=== PATIENT | female | born 1970 | race Caucasian/White ===

== ENCOUNTER → 2017-08-15 10:47 | Outpatient (CLI) | payer OTHER, SELFPAY ==
[2017-08-15 11:48] LABS: Absolute Lymphocyte Count 2.48 X10^3/ul (0.83-4.51); Absolute Neutrophil Count 6.6 X10^3/uL (2.0-7.7); Basophil# 0.01 X10^3/uL; Basophil% 0.1 % (0-1); Eosinophil# 0.08 X10^3/uL; Eosinophils% 0.8 % (0-5); Hemoglobin 13.7 g/dl (12.0-15.0); Lymphocyte # 2.48 X10^3/ul (4.0); Lymphocyte % 25.7 % (19-41); Mean Corp Hgb Conc 33.4 g/gl (32-36); Mean Corpuscular Hgb 28.8 pg (27.0-32.0); Mean Corpuscular Volume 86.1 fL (81-99); Mean Platelet Vol. 9.4 fl (6.2-12.0); Monocyte# 0.46 X10^3/uL; Monocyte% 4.8 % (0-10); Neutrophil % 68.5 % (47-70); Platelet Count 338 K/mm3 (150-450); RBC Distribution Width CV 13.1 % (11.6-14.6); RBC Distribution Width SD 41.6 fl (35.1-43.9); Red Blood Count 4.76 M/mm3 (4.2-5.4); White Blood Count 9.6 K/mm3 (4.4-11.0)
[2017-08-15 11:50] LABS: POSITIVE COUNT NO; POSITIVE DIFFERENTIAL NO; POSITIVE MORPHOLOGY NO
[2017-08-15 12:15] LABS: AST(SGOT) 10 U/L (15-37); Alanine Aminotransfer ALT/SGPT 16 U/L (13-56); Albumin, Serum 3.1 g/dL (3.2-5.0); Alkaline Phosphatase 58 U/L (45-117); Anion Gap 8 (5-15); BUN 12 mg/dL (7-18); BUN/Creat Ratio 17.3 RATIO (10-20); Calcium,Total 8.4 mg/dL (8.5-10.1); Chloride 107 mmol/L (98-107); Cholesterol 165 mg/dL (200); Creatinine, Serum 0.69 mg/dL (0.55-1.02); EST Glomerular Filtration Rate 96 mL/min (>60); Est Glom Filt Rate - Afr Amer 116 mL/min (>60); Globulin 3.2 g/dL (2.2-4.2); Glucose 85 mg/dL (74-106); High Density Lipoprotein 51 mg/dL; Potassium 3.4 mmol/L (3.5-5.1); Protein, Total 6.3 g/dL (6.4-8.2); Sodium Level 142 mmol/L (136-145); T4 Free Direct 0.99 ng/dL (0.76-1.46); Thyroid Stim Hormone (TSH) 1.91 uIU/mL (0.358-3.74); Triglycerides 71 mg/dL; Very Low Density Lipoprotein 14 mg/dL (5-40)
== END ==
PROVIDERS: Family Provider Family Medicine; PCP Family Medicine; Visit Provider Family Medicine
DX: E78.5 Hyperlipidemia, unspecified (principal); E11.9 Type 2 diabetes mellitus without complications; I10 Essential (primary) hypertension
CPT/HCPCS: 36415; 80053; 80061; 84439; 84443; 85025

== ENCOUNTER → 2017-09-09 12:52 | Outpatient (CLI) | payer OTHER, SELFPAY ==
--- NOTE | 2017-09-09 12:55 | BI_ITS ---
MAMMOGRAPHY - BILATERAL SCREENING REASON FOR EXAM: Female, 47 years old. Routine annual screening examination. PERTINENT HISTORY: Aunt with breast cancer. TECHNIQUE: Digital bilateral breast jorden (3D mammographic acquisition) in the CC and MLO projections. 2-D mediolateral oblique (MLO) and craniocaudad (CC) views of both breasts were obtained. CAD: Full Field Digital Mammography with Computer Added Detection was performed. COMPARISON: Comparison is made with prior study dated September 07, 2016. FINDINGS: Breast Composition: The breasts are almost entirely fatty. There are no dominant masses or suspicious calcifications. Stable benign-appearing small bilateral axillary lymph nodes. No other significant abnormalities are identified. There has been no significant change since the prior study. BI/SCREENING MAMM (CAD), BILAT IMPRESSION: Stable bilateral screening mammogram. Yearly follow-up mammogram recommended. (A) ASSESSMENT CATEGORY: BIRADS Category 2: Benign. A letter regarding these results will be sent to the patient by the facility within 30 days. Approximately 10% of breast cancers are not detected by mammography. A normal mammogram should not delay biopsy of a clinically suspicious abnormality. [id number] Electronically Signed: Angel Day MD at 9:29 EDT Tel [phone], Service support ,
== END ==
PROVIDERS: Family Provider Family Medicine; PCP Family Medicine; Visit Provider Obstetrics & Gynecology
DX: Z12.31 Encounter for screening mammogram for malignant neoplasm of breast (principal)
CPT/HCPCS: 77063; 77067

== ENCOUNTER → 2017-12-11 09:54 | Outpatient (CLI) | payer OTHER, SELFPAY ==
[2017-12-11 10:39] LABS: Microalbumin,Random Urine 26.8 mg/L (NO RANGE EST.); Microalbumin:Creatinine Ratio 11.5 mg/g CRE (<30 mg/g CRE)
== END ==
PROVIDERS: Family Provider Internal Medicine; PCP Internal Medicine; Visit Provider Internal Medicine
DX: E11.9 Type 2 diabetes mellitus without complications (principal)
CPT/HCPCS: 36415; 82043; 82570; 83036

== ENCOUNTER 2018-01-15 15:00 | Outpatient (RCR) | payer OTHER, SELFPAY ==
--- NOTE | 2017-12-23 13:54 | HP.PTEVAL ---
Patient's Visit Information MERCED OROZCO is a 47 year old F referred to Physical Therapy by Adelina Zelaya MD with a diagnosis of Bilateral Shoulder Pain. Date of Evaluation: 12/23/17 Physical Therapist: Desiree Casas - Visit Plan Frequency: 2-3x /Week Duration: 4 Months Plan: Focus on scap s/s and postural correction- modalities as needed - Subjective Subjective: Bilateral shoulder pain about a year- insidious onset- was exercising using the bands and they were sore and just got worse. Left use to be the worst but now its the right. Feels they have gotten worse. The pain is in the anterior shoulder and radites to the elbow on the right. Right hand dominate. Describes the pain as searing pains- feels like someone is pulling her apart. Radiating pain is sharp and sometimes burning. Was having N/T in the hands but its gone now- Dr. Cruz thinks she has radial tunnel- 2 months since symptoms. Worst: 10/10 Agg: reaching behind her, over head, hook bra. Best: 0/10 Eases: none. MD had her take a predniose dose pack which did not help. No x-rays or MRI of the shoulder. Sleep: disturbed- hard to get comfortable and will wake her up- side sleeper. No neck pain currently but has had neck pain previously-does not see a chiro or massage therapist. No RUSH, blurred vision or dizziness. PMHx: type 2 DM, blood sugar is not under control (250 is normal) Meds: lisinopril, torvastatin, glomeperide, baslogar injection, effexor. 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 - Objective Posture: FH, RS- does correc with VC's but does not maintain. Gait: good arm swing-WFL. Palpation: tender along AC joint, medial border of the scapula. ROM: Cervical: WNL, Shoulder: WNL with pain at end ranges of Flexion, abduction and IR. Right IR: to belt line. Elbow/Wrist/hand: WNL. Strength: scap: fair minus, shoulder: 4+/5 throughout with pain IR/ER. Elbow/Wrist/Psychiatric Specialist: WNL. Special Test: Impingment: positive ([facility]), empty can: negative. Sensation: WNL - Goals Goal 1:: Patient will be I with HEP and progression Goal Time Frame: 4-6 Weeks Goal 2:: Patient will maintain proper posture t/o tx session to demo increased scap s/s. Goal Time Frame: 4-6 Weeks Goal 3:: Patient will demo full AROM with 0/10 pain Goal Time Frame: 4-6 Weeks - Rehabilitation Potential Physical Therapy Diagnosis: Patient presents with hypomobility- she has decreased ROM, strength and muscular endurance leading to poor posture and increased pain with ADL's. Rehabilitation Potential: Good - Anticipated Interventions Patient/Client Instruction: Educate patient on: Benefits of Fitness Program Therapeutic Exercise to Include: Strength training, Coordination, Body mechanics, Postural training, Active ROM, Scapular Strength/Stabilization For the Purpose of:: To improve muscle performance and motor function TENS: Yes Cryotherapy (ice pack, ice massage): Yes Thermo therapy (hot pack): Yes Ultrasound (thermal/non thermal): Yes For the Purpose of:: To decrease pain Thank you for the opportunity to evaluate your patient. For Medicare and Medicare HMO plans, please review the plan of care and approve it. It will need to be FAXED BACK to us at [phone] for Medicare purposes. Please let me know if there are questions or concerns regarding this plan of care. Physician Signature: Date:
--- NOTE | 2018-05-28 09:01 | HP.PTDCNRP_ITS ---
HP - Discharge Summary (1) - Patient Information MERCED OROZCO was seen in my office for initial evaluation on 12/23/17. The following Plan of Care was established for this patient: Initial Frequency: 2-3x /Week Initial Duration: 4 Months - Anticipated Interventions Patient/Client Instruction: Educate patient on: Benefits of Fitness Program Therapeutic Exercise to Include: Strength training, Coordination, Body m echanics, Postural training, Active ROM, Scapular Strength/Stabilization For the Purpose of:: To improve muscle performance and motor function TENS: Yes Cryotherapy (ice pack, ice massage): Yes Thermo therapy (hot pack): Yes Ultrasound (thermal/non thermal): Yes For the Purpose of:: To decrease pain This patient was last seen in our office . Pertinent comments regarding their Physical therapy will appear below: Patient reported that shoulder was worse and was to return to MD for further evaluation- appropriate to be d.c at this time. At this point I will be discontinuing this patient from physical therapy. I would be happy to see this patient again in the future if found appropriate by the physician. Thank you! Desiree Casas DPT
== END 2018-01-15 19:00 | disposition home or self-care (01) ==
LOC: PT 15:00
PROVIDERS: Family Provider Internal Medicine; PCP Internal Medicine; Visit Provider Internal Medicine
DX: M25.511 Pain in right shoulder (principal); M25.512 Pain in left shoulder
CPT/HCPCS: 97110; 97161

== ENCOUNTER → 2018-01-17 15:05 | Outpatient (CLI) | payer OTHER, SELFPAY | PROVIDERS: Family Provider Internal Medicine; PCP Internal Medicine; Visit Provider Internal Medicine | DX: G47.10 Hypersomnia, unspecified (principal) | CPT/HCPCS: 95806 ==

== ENCOUNTER → 2018-02-10 11:15 | Outpatient (CLI) | payer OTHER, SELFPAY ==
--- NOTE | 2018-02-10 11:17 | RAD_ITS ---
STUDY: X-RAY - RIGHT SHOULDER REASON FOR EXAM: Female, 47 years old. Bilateral shoulder pain TECHNIQUE: 4 view(s) of the shoulder. COMPARISON: Contralateral shoulder same date. Chest x-ray 05/08/2016. 11/28/2016. FINDINGS: Normal acromioclavicular joint. No fracture. Small foci of calcification overlying the greater tubercle of the humerus at the supraspinatus/infraspinatus insertion consistent with calcific tendinosis. RAD/Shoulder min 2 Views IMPRESSION: Evidence of calcific tendinosis of the rotator cuff. Osseous structures normal. Electronically Signed: Ash Burks, at 17:20 EDT Tel , Service support ,
--- NOTE | 2018-02-10 11:19 | RAD_ITS ---
STUDY: X-RAY - LEFT SHOULDER REASON FOR EXAM: Female, 47 years old. Bilateral shoulder pain TECHNIQUE: 4 view(s) of the shoulder. COMPARISON: Contralateral shoulder same date. FINDINGS: Small foci of calcification overlying the greater tubercle of the humerus at the expected location of the supraspinatus or infraspinatus insertion, consistent with calcific tendinosis. Osseous structures about the shoulder are otherwise normal. Periarticular soft tissues normal. RAD/Shoulder min 2 Views IMPRESSION: Evidence of calcific tendinosis of the rotator cuff, otherwise unremarkable shoulder. Electronically Signed: Ash Burks, at 17:21 EDT Tel , Service support ,
== END ==
LOC: HPRAD 11:16
PROVIDERS: Family Provider Internal Medicine; PCP Internal Medicine; Referring Provider Internal Medicine; Visit Provider Internal Medicine
DX: M25.511 Pain in right shoulder (principal); M25.512 Pain in left shoulder
CPT/HCPCS: 73030

== ENCOUNTER 2018-02-24 05:29 | Emergency (ER) | payer OTHER, SELFPAY ==
[2018-02-24 05:30] VITALS: BP 162/83; PULSE 78; RESP 20; TEMP 36.6; O2SAT 99; BMI 36.1
--- NOTE | 2018-02-24 05:36 | RAD_ITS ---
STUDY: X-RAY - ABDOMEN/PELVIS REASON FOR EXAM: Female, 47 years old. Constipation TECHNIQUE: Two AP supine views of the abdomen and pelvis. COMPARISON: None. FINDINGS: Normal visualized lung bases. There is a moderate amount of colonic fecal material. There is no demonstrated free abdominal air. The visualized liver, spleen and kidneys are grossly normal in size and morphology. Normal soft tissue structures. Normal visualized osseous structures. RAD/Abdomen Single View IMPRESSION: There is a moderate amount of colonic fecal material. Electronically Signed: Daniel Evans MD at 5:58 EDT Tel , Service support ,
--- NOTE | 2018-02-24 06:15 | ED.VISSUMM ---
- ER Visit Summary Date of Service: 02/24/18 Chief Complaint: Constipation History of Present Illness: The patient is a 47 F presenting with constipation. Patient states she has not had a bowel movement in the past 3 days. She has tried Dulcolax at home without relief. She has nausea with no vomiting. She has mild diffuse abdominal cramping. Denies fever. Denies other complaints. Physical Examination: Vitals are stable. Patient is afebrile. Alert no acute distress. HEENT exam is unremarkable. Lungs are clear and equal bilaterally. Heart is regular rate and rhythm. Abdomen is soft nontender nondistended. No guarding or rebound Rectal: no stool impaction Extremities are unremarkable. Skin is warm and dry. Remainder of exam is unremarkable. Emergency Department Course and Treatment: KUB shows moderate amount of stool. Patient was given Zofran po. She declined enema in the emergency department. She was given mag citrate for home. She is advised to follow-up with her primary care physician. Advised return to ED if worsening complaints. Disposition: Discharge home Impression: Constipation This note was generated with [employer] dictation software. It may contain incorrect words, spelling, and punctuation that were not noted in review of the chart prior to signing ED Disposition - Plan for ED Patient: Chief Complaint: Abd Pain Instructions: ED Constipation Referrals: Adelina Zelaya MD [Primary Care Provider] -
[2018-02-24] MEDS: Magnesium Citrate 300 ML PO (06:23)
[2018-02-24] MEDS: Ondansetron ODT 4 MG Tablet PO (06:23)
[2018-02-24 06:25] VITALS: RESP 18
== END 2018-02-24 06:25 | disposition home or self-care (01) ==
PROVIDERS: Emergency Provider Emergency Medicine; Family Provider Internal Medicine; PCP Internal Medicine
DX: K59.00 Constipation, unspecified (principal); E11.9 Type 2 diabetes mellitus without complications; Z79.4 Long term (current) use of insulin; Z79.899 Other long term (current) drug therapy
CPT/HCPCS: 74018; 99283

== ENCOUNTER → 2018-03-26 16:31 | Outpatient (CLI) | payer OTHER, SELFPAY ==
[2018-03-26 14:58] VITALS: BMI 34.2
[2018-03-26 16:36] LABS: Mucous, Urine 0 SEEN /hpf (<or=2+)
[2018-03-26 17:27] LABS: Color, Urine Yellow (Yellow); Glucose, Dipstick 250 mg/dl (Normal); Ketone-Dipstick Negative (Negative); Leukocyte Esterase-Dipstick 500 /ul (Negative); Nitrite-Dipstick Negative (Negative); Occult Blood-Urine 250 /ul (Negative); Protein-Dipstick 15 mg/dl (Negative); Urine Bilirubin Dipstick Negative (Negative); Urine Clarity Cloudy (Clear); Urine Urobilinogen Normal (Normal)
[2018-03-26 17:43] LABS: Bacteria 1+ /hpf (None Seen); Red Blood Cells-Urine 5-10 SEEN /hpf (0-5); Squamous Epithelial Cells - UA 10-25 SEEN /hpf (5-10); White Blood Cells 25-50 SEEN /hpf (0-5)
== END ==
LOC: LABSPEC 16:32
PROVIDERS: Family Provider Internal Medicine; PCP Internal Medicine; Referring Provider Nurse Practitioner Family; Visit Provider Nurse Practitioner Family
DX: R30.0 Dysuria (principal)
CPT/HCPCS: 81001; 87086; 87088

== ENCOUNTER → 2018-05-23 09:30 | Outpatient (CLI) | payer OTHER, SELFPAY ==
[2018-05-23 09:03] VITALS: BMI 34.2
--- NOTE | 2018-05-23 09:37 | RAD_ITS ---
STUDY: X-RAY - CERVICAL SPINE REASON FOR EXAM: Female, 47 years old. History of radiculopathy. TECHNIQUE: 3 view(s) of the cervical spine were obtained. COMPARISON: None FINDINGS: Normal anterior atlantoaxial articulation. Normal odontoid process. There is straightening of the normal cervical lordosis. The vertebral heights are within normal limits. There is mild endplate spondylosis at the level of C5-C6. Normal disc space heights. The soft tissue structures are unremarkable. There is no demonstrated fracture of the cervical spine. RAD/Cerv Spine 2 or 3 Views IMPRESSION: 1. Straightening of the cervical spine which could be due to muscle spasm. 2. Mild degenerative changes. Electronically Signed: Nazario Leal MD at 9:57 EST Tel , Service support ,
--- OUTSIDE RECORDS SUMMARY | 2018-07-27 17:06 | XMS RPT_ITS ---
:1970 Author Organization OHIP Support Name Relationship Address Phone [facility] Unavailable [address] + [place] [address] HUDSPITH, DANIELLE Unavailable [address] + [place] [address] [facility] Unavailable [address] + [place] [address] HUDSPITH, DANIELLE Unavailable [address] + [place] [address] [facility] Unavailable [address] + [place] [address] HUDSPITH, DANIELLE Unavailable [address] + [place] [address] [facility] Unavailable [address] + [place] [address] HUDSPITH, DANIELLE Unavailable [address] + [place] [address] [facility] Unavailable [address] + [place] [address] HUDSPITH, DANIELLE Unavailable [address] + [place] [address] [facility] Unavailable [address] + [place] [address] HUDSPITH, DANIELLE Unavailable [address] + [place] [address] [facility] Un[address] + [place] [address] HUDSPITH, DANIELLE Unavailable [address] + [place] [address] [facility] Un[address] + [place] [address] HUDSPITH, DANIELLE Unavailable [address] + [place] [address] [facility] Unavailable [address] + [place] [address] HUDSPITH, DANIELLE Unavailable [address] + [place] [address] [facility] Un[address] + [place] [address] HUDSPITH, ADNIELLE Unavailable [address] + [place] [address] [facility] Un[address] + [place] [address] HUDSPITH, DANIELLE Unavailable [address] + [place] [address] [facility] Un[address] + [place] [address] HUDSPITH, DANIELLE Unavailable [address] + [place] [address] [facility] Unavailable [address] + [place] [address] HUDSPITH, DANIELLE Unavailable [address] + [place] [address] [facility] Unavailable [address] + [place] [address] HUDSPITH, DANIELLE Unavailable [address] + [place] [address] [facility] Unavailable [address] + [place] [address] HUDSPITH, DANIELLE Unavailable [address] + [place] [address] [facility] Unavailable [address] + [place] [address] HUDSPITH, DANIELLE Unavailable [address] + [place] [address] [facility] Unavailable [address] + [place] [address] HUDSPITH, DANIELLE Unavailable [address] + [place] [address] [facility] Unavailable [address] + [place] [address] HUDSPITH, DANIELLE Unavailable [address] + [place] [address] [facility] Un[address] + [place] [address] HUDSPITH, DANIELLE Unavailable [address] + [place] [address] [facility] Unavailable [address] + [place] [address] [facility] Un[address] + [place] [address] [facility] [address] + [place] [address] [facility] Un[address] + [place] [address] [facility] [address] + [place] [address] ASADSPITH, DANIELLE Unavailable [address] + [place] [address] [facility] Unavailable [address] [address] + [place] [address] HUDSPITH, DANIELLE Unavailable [address] + [place] [address] Care Team Providers Name Role Phone Alek Wilburn Attending Unavailable Alek Wilburn Attending Unavailable Alek Wilburn Referring Unavailable Oleghe, Efewongbe Primary Care Unavailable Ashish Medley Attending Unavailable Ashish Medley Referring Unavailable Galindo, Ashish Primary Care Unavailable Carleen Marquis Attending Unavailable Ashish Medley Primary Care Unavailable Nathalie, Efewongbe Attending Unavailable Ashish Medley Referring Unavailable Galindo, Ashish Primary Care Unavailable Oleghe, Efewongbe Attending Unavailable Lazarusghe, Efewongbe Referring Unavailable Galindo, Ashish Primary Care Unavailable Oleghe, Efewongbe Attending Unavailable Oleghe, Efewongbe Referring Unavailable Oleghe, Efewongbe Primary Care Unavailable Oleghe, Efewongbe Attending Unavailable Oleghe, Efewongbe Referring Unavailable Oleghe, Efewongbe Primary Care Unavailable Oleghe, Efewongbe Attending Unavailable Oleghe, Efewongbe Primary Care Unavailable Katie Gay Attending Unavailable Oleghe, Efewongbe Referring Unavailable Toney Alvarez Attending Unavailable Oleghe, Efewongbe Referring Unavailable Oleghe, Efewongbe Primary Care Unavailable Oleghe, Efewongbe Attending Unavailable Oleghe, Efewongbe Referring Unavailable Oleghe, Efewongbe Attending Unavailable Oleghe, Efewongbe Primary Care Unavailable Oleghe, Efewongbe Attending Unavailable Oleghe, Efewongbe Referring Unavailable Oleghe, Efewongbe Attending Unavailable Oleghe, Efewongbe Referring Unavailable Oleghe, Efewongbe Primary Care Unavailable Candida Contreras Attending Unavailable Oleghe, Efewongbe Attending Unavailable Oleghe, Efewongbe Referring Unavailable Oleghe, Efewongbe Primary Care Unavailable Oleghe, Efewongbe Attending Unavailable Oleghe, Efewongbe Referring Unavailable Oleghe, Efewongbe Primary Care Unavailable Sharita Lou Attending Unavailable Shah, Johnathan HUMAN RESOURCES PSYCHOLOGIST-C Attending Unavailable Oleghe, Efewongbe Referring Unavailable Liang Petit Attending Unavailable Oleghe, Efewongbe Referring Unavailable Candida Contreras Attending Unavailable ShahJohnathan HUMAN RESOURCES PSYCHOLOGIST-C Attending Unavailable Oleghe, Efewongbe Referring Unavailable Shah, Johnathan HUMAN RESOURCES PSYCHOLOGIST-C Attending Unavailable Shah, Johnathan HUMAN RESOURCES PSYCHOLOGIST-C Referring Unavailable Oleghe, Efewongbe Primary Care Unavailable PROBLEMS PROBLEMS DATE TYPE CONDITION / CODE ATTENDING STATUS SOURCE 05/23/2018 Unknown M54.12 - Alek Wilburn Active [place] Radiculopathy, [facility] cervical region / Hospital M54.12(ICD-10) Repository 05/23/2018 Unknown M75.32 - Calcific AkilaAlek Active [place] tendinitis of left [facility] shoulder / Hospital M75.32(ICD-10) Repository 03/26/2018 Unknown R30.0 - Dysuria / Johnathan Shah Active [place] R30.0(ICD-10) HUMAN RESOURCES PSYCHOLOGIST-C [facility] Hospital Repository 03/06/2018 Unknown M75.40 - Liang Petit Active [place] Impingement Community syndrome of Hospital unspecified Repository shoulder / M75.40(ICD-10) 01/29/2018 Unknown M25.512 - Pain in O[place], Active [place] left shoulder / [facility] M25.512(ICD-10) Hospital Repository 05/28/2018 Unknown M25.511 - Pain in O[place]he, Active [place] right shoulder / [facility] M25.511(ICD-10) Hospital Repository 12/11/2017 Unknown E11.9 - Type 2 [facility], [facility] diabetes mellitus [facility] without Hospital complications / Repository E11.9(ICD-10) 09/09/2017 Unknown Z12.31 - Encounter Romel Marquis [place] for screening Summer [facility] mammogram for Hospital malignant neoplasm Repository of breast / Z12.31(ICD-10) PROCEDURES PROCEDURES No Procedure Records FoundRESULTS RESULTS CERV SPINE 2 OR 3 Observed: 05/23/2018 Status: F Source: [place] VIEWS 10:03 AM [facility] REPOSITORY [facility] Imaging Services [address] [place] [address] Cerv Spine 2 or 3 Views MR#: [id number] Acct: [id number] Name: MERCED OROZCO Rep #: [id number] : 1970 F 47 From: Nazario Leal MD PCP: Adelina Zelaya MD Status: REG CLI Study: Cerv Spine 2 or 3 Views Date of Exam: 05/23/18 Exam# [id number] Ordering Dr: Alek Wilburn DO STUDY: X-RAY - CERVICAL SPINE REASON FOR EXAM: Female, 47 years old. History of radiculopathy. TECHNIQUE: 3 view(s) of the cervical spine were obtained. COMPARISON: None FINDINGS: Normal anterior atlantoaxial articulation. Normal odontoid process. There is straightening of the normal cervical lordosis. The vertebral heights are within normal limits. There is mild endplate spondylosis at the level of C5-C6. Normal disc space heights. The soft tissue structures are unremarkable. There is no demonstrated fracture of the cervical spine. RAD/Cerv Spine 2 or 3 Views IMPRESSION: 1. Straightening of the cervical spine which could be due to muscle spasm. 2. Mild degenerative changes. Electronically Signed: Nazario Leal MD at 9:57 EST Tel , Service support , CC: Adelina Zelaya MD; Alek Wilburn DO Smelter Liner: Signed URINALYSIS, COMPLETE Collected: 03/26/2018 Status: F Source: [place] 4:34 PM [facility] REPOSITORY Order Comment: How was Urine Obtained? HOUSING INSPECTOR TO SPECIFY TYPE CODE TESTS RESULT OUT OF RANGE REFERENCE UNITS LAB L400.3000 Yellow COLOR Normal Yellow LAB L400.3050 Clear Normal CLARITY Cloudy LAB L400.3200 Normal mg/dl High GLUCOSE, UR 250 LAB L400.3300 Negative mg/dL Normal BILIRUBIN URINE Negative LAB L400.3400 Negative mg/dl Normal KETONE UR Negative LAB L400.3465 1.002-1.030 Normal SP.GR. DIPSTX 1.010 LAB L400.3550 5.0 - 8.0 pH UR Normal 7.0 LAB L400.3600 Negative mg/dl High PROT 15 DIPSTX LAB L400.3700 Normal mg/dl Normal UROBILI Normal LAB L400.3750 Negative Normal NITRITE UR Negative LAB L400.3780 Negative /ul High OCCULT BLOOD-UR 250 LAB L400.3800 Negative /ul High LEUK ESTERASE 500 LAB L400.4050 0-5 /hpf WBC Normal 25-50 SEEN LAB L400.4100 0-5 /hpf Normal RBC-UA 5-10 SEEN LAB L400.4150 5-10 /hpf SQUAM Normal EPI 10-25 SEEN LAB L400.4300 None Seen /hpf 1+ Normal BACTERIA LAB L400.4350 <or=2+ /hpf 0 Normal MUCUS, URINE SEEN Performed By: #### L400.0001 #### [facility] [address] [place], [place], [id number] Observed: 03/26/2018 Status: F Source: [place] CULTURE, URINE 4:34 PM [facility] REPOSITORY Urine Culture ORGANISM 1: Mixed Gram Pos AND Gram Neg Org [place] Count >100,000 MIX CULTURE Mixed contaminants. Submit a new specimen if indicated. Performed By: #### M100.0650 #### [facility] [address] [place], [address] INTERNAL MEDICINE Observed: 03/26/2018 Status: F Source: [place] OFFICE VISIT 3:43 PM [facility] Internal Medicine [address] [place] [address] [place] [address] OFFICE VISIT Date of Service: 03/26/18 MR#: [id number] Acct: [id number] Name: MERCED OROZCO Rep #: [id number] : 1970 Provider: Johnathan Shah NP Age/Sex: 47/F Location: [facility] Status: Signed Intake Vital Signs03/26/18 Height 5 ft 7 in Intake Visit Reasons: burning with urination Chief Complaint: burning with urination Is patient in pain?: Yes (painful urination) Allergies No Known Allergies Allergy (Verified 03/04/18 15:58) Medications lisinopril 20 mg tablet 20 mg PO QDAY 11/01/17 [History Confirmed 03/04/18] atorvastatin 20 mg tablet 20 mg PO QDAY #90 tab 11/05/17 [Rx Confirmed 03/04/18] insulin glargine (U-100) 100 unit/mL (3 mL) subcutaneous pen 42 unit SC BID ml 01/29/18 [History Confirmed 03/04/18] L.acidophil-L.casei-B.bifid-B.longum-FOS 2 billion cell-50 mg capsule mg PO cap 02/14/18 [History Confirmed 03/04/18] turmeric 400 mg capsule 1 mg PO DAILY cap 02/14/18 [History Confirmed 03/04/18] exenatide ER 2 mg/0.85 mL subcutaneous auto-injector 2 mg SC Q7D #3.4 ml 02/28/18 [Rx] glimepiride 4 mg tablet 4 mg PO BID #180 tab 02/28/18 [Rx Confirmed 03/04/18] polyethylene glycol 3350 17 gram oral powder packet 17 g PO BID PRN #100 ea 03/04/18 [Rx Confirmed 03/04/18] insulin needles (disposable) 30 X 3/4 See Dose Instructions .ROUTE .MEDSUPPLY #1 03/10/18 [History Confirmed 03/10/18] pen needle, diabetic 32 gauge x See Dose Instructions .ROUTE .MEDSUPPLY #100 ea 03/11/18 [Rx] venlafaxine ER 150 mg capsule,extended release 24 hr 150 mg PO QDAY #90 cap 03/21/18 [Rx] venlafaxine ER 37.5 mg capsule,extended release 24 hr 37.5 mg PO DAILY #90 cap 03/21/18 [Rx] nitrofurantoin monohydrate/macrocrystals 100 mg capsule 100 mg PO BID #10 cap 03/26/18 [Rx Confirmed 03/26/18] phenazopyridine 100 mg tablet 100 mg PO TID PRN 0 Days #6 tab 03/26/18 [Rx Confirmed 03/26/18] Post menopausal: Yes PFSH Medical History IBS (irritable bowel syndrome) (Chronic) High triglycerides (Chronic) Frequent headaches (Chronic) Depression (Chronic) Arthritis (Chronic) Diabetes (Chronic) Surgical History Status post incision and drainage (Acute) History of tubal ligation (Acute) Family History Aunt Breast cancer Mother Diabetes Hypertension High cholesterol CVA (cerebral vascular accident) ulcers Father Diabetes Skin cancer Grandmother Diabetes Heart disease Aunt Parkinson disease Social History Smoking Status: Former smoker how long ago did patient quit smokin alcohol intake: never substance use type: does not use what type of physical activity do you participate in: walking frequency: 1-2 times per week HPI HPI Chief Complaint: burning with urination Details: MERCED OROZCO, is a 47 F who presents to the office today for an acute visit burning with urination times 4 days. She has a past medical history as listed above. The patient states that approximately 4 days ago she noted burning pain with urination. She states she initially thought it could have been a yeast infection so she took a oral Diflucan that was given to her from her [employer]. She states that this did not help with her symptoms. She continued to have complaints of increased urinary frequency and hesitancy and noted that her urine was slightly blood-tinged, cloudy, and strong smelling. She denies any other nonw-gua-djnhacn treatments. She denies any other aggravating or relieving factors. The patient otherwise denies any fever, chills, nausea, vomiting, shortness of breath, chest pain or pressure, palpitations, orthopnea, lower extremity edema, syncope or presyncopal episodes. ROS Const Constitutional: No weight change, body ache, chills, fatigue, sleep problems, fever(s), change in appetite, snoring, weakness, frequent falls, headache(s) or excessive sweating Eyes Eyes: No change in vision, eye pain, light sensitivity or blurry vision ENT ENT: No headache(s), abnormal hearing, ear pain, tinnitus, nasal congestion, sore throat or neck pain Resp Respiratory: No snoring, cough, shortness of breath or wheezing Cardio Cardiology: No excessive sweating, chest pain at rest, chest pain with exertion, shortness of breath, dyspnea on exertion, palpitations, orthopnea or lightheadedness Gastro GI: No abdominal pain, change in bowel habits, constipation, diarrhea, vomiting, nausea/dyspepsia or cramping Genitourinary-Female: Positive for burning urination; no painful urination, urinary incontinence, urinary frequency, abnormal vaginal bleeding, pelvic pain or other Musc Musculoskeletal: No neck pain, abnormal walking, joint pain, back pain, limited range of motion, numbness or tingling Skin Skin: No redness, dry skin, itching, lesions, wounds or rash Neuro Neurology: No weakness, frequent falls, headache(s), abnormal hearing, abnormal walking, numbness, tingling, abnormal speech, dizziness or memory loss Psych Psychiatric: No change in appetite, No memory loss, No anxiety, No depression, No Thoughts of harming yourself/Others Endo Endocrine: No fatigue, excessive sweating, cold intolerance, increased thirst/drinking, heat intolerance, flushing or increased hunger Aller/Imm Allergy/Immunologic: No wheezing, itchy eyes, hives or seasonal allergy symptoms Bebo/Lymp Hematologic/Lymphatic: No easy bleeding, easy bruising or enlarged lymph nodes Exam Const General: cooperative, comfortable, no acute distress Nutritional Appearance: average body habitus, well nourished Orientation: alert, oriented x3 Limitations: mental status not altered Resp Effort AND Inspection: normal respiratory effort, able to speak in complete sentences, normal respiratory pattern, symmetric chest movement, no audible wheezes, no cough Auscultation: Bilateral: Clear to Auscultation Cardio Palpation: normal PMI Rate: regular rate Heart Sounds: S1 normal, S2 normal, normal S1 and S2, no click, no gallops, no murmurs, no rubs GI Inspection: normal to inspection Auscultation: normal bowel sounds, no hyperactive bowel sounds, no hypoactive bowel sounds Palpation: soft, no hepatosplenomegaly General: No CVA tenderness, other (Negative for suprapubic tenderness on palpation) Skin General: no rashes or lesions noted, elasticity normal, turgor normal Lesions: no lesions Rashes: no rashes Extrem General: normal to inspection, normal gait, no edema, no pedal edema Psych Appearance: grossly normal Mental Status: mental status grossly normal Affect: normal affect Attitude: cooperative Thought Process: normal Assessment AND Plan Problems 1. Acute cystitis with hematuria N30.01 2. Dysuria R30.0 Plan Patient symptoms are consistent with acute cystitis with hematuria. She had a urine dip in office which was positive for glucose, moderate leukocytes, large amount of blood, trace protein. Will treat empirically with Macrobid twice daily times 5 days and Pyridium. Discussed conservative management as well such as increasing fluid intake, and proper hygiene. No CVA tenderness on exam. Discussed red flag symptoms that require urgent medical attention. Patient verbalized understanding. Patient to follow-up as needed Orders Orders: Medications New: nitrofurantoin monohyd/m-cryst 100 mg ([id number] mg PO BID 10 caps 0RF ) must administer with a meal/food Plan Detail Follow Up As previously scheduled or sooner Coding Level of Care Code Off vis,est,level 3 Diagnoses Acute cystitis with hematuria N30.01 Dysuria R30.0 03/26/18 1543 <Electronically signed by Johnathan MATA> Date Johnathan MATA Cosigner Signature: Date (if applicable) CC: INTERNAL MEDICINE Observed: 03/05/2018 Status: F Source: [place] OFFICE VISIT 2:46 PM [facility] Medicine [address] [place] [address] [place] [address] OFFICE VISIT Date of Service: 03/04/18 MR#: [id number] Acct: [id number] Name: MERCED OROZCO Rep #: [id number] : 1970 Provider: Johnathan Shah NP Age/Sex: 47/F Location: [facility] Status: Signed Intake Vital Signs03/04/18 Height 5 ft 7 in 03/04/18 Weight: 221 lb 03/04/18 Body Mass Index (BMI) 34.6 03/04/18 Blood Pressure 111/73 03/04/18 Blood Pressure Location Lt brachial Intake Visit Reasons: Constipation Chief Complaint: Constipation Is patient in pain?: No Allergies No Known Allergies Allergy (Verified 03/04/18 15:58) Medications lisinopril 20 mg tablet 20 mg PO QDAY 11/01/17 [History Confirmed 03/04/18] atorvastatin 20 mg tablet 20 mg PO QDAY #90 tab 11/05/17 [Rx Confirmed 03/04/18] insulin glargine (U-100) 100 unit/mL (3 mL) subcutaneous pen 42 unit SC BID ml 01/29/18 [History Confirmed 03/04/18] venlafaxine ER 150 mg capsule,extended release 24 hr 150 mg PO QDAY #90 cap 01/29/18 [Rx Confirmed 03/04/18] L.acidophil-L.casei-B.bifid-B.longum-FOS 2 billion cell-50 mg capsule mg PO cap 02/14/18 [History Confirmed 03/04/18] turmeric 400 mg capsule 1 mg PO DAILY cap 02/14/18 [History Confirmed 03/04/18] exenatide ER 2 mg/0.85 mL subcutaneous auto-injector 2 mg SC Q7D #3.4 ml 02/28/18 [Rx] glimepiride 4 mg tablet 4 mg PO BID #180 tab 02/28/18 [Rx Confirmed 03/04/18] polyethylene glycol 3350 17 gram oral powder packet 17 g PO BID PRN #100 ea 03/04/18 [Rx Confirmed 03/04/18] PFSH Medical History IBS (irritable bowel syndrome) (Chronic) High triglycerides (Chronic) Frequent headaches (Chronic) Depression (Chronic) Arthritis (Chronic) Diabetes (Chronic) Surgical History Status post incision and drainage (Acute) History of tubal ligation (Acute) Family History Aunt Breast cancer Mother Diabetes Hypertension High cholesterol CVA (cerebral vascular accident) ulcers Father Diabetes Skin cancer Grandmother Diabetes Heart disease Aunt Parkinson disease Social History Smoking Status: Former smoker how long ago did patient quit smokin alcohol intake: never substance use type: does not use what type of physical activity do you participate in: walking frequency: 1-2 times per week HPI HPI Chief Complaint: Constipation Details: MERCED OROZCO, is a 47 F who presents to the office today for a follow-up ER visit of constipation. She has a past medical history as listed above. The patient states that she is seen at [facility] emergency department on 02/24/2018 with complaints of constipation not having a bowel movement after 3 days. They did a KUB which demonstrated large amount of fecal colonic material present. She was discharged home with magnesium citrate and took the entire dose and states that she only had small bowel movement afterwards. She states that she is also tried fiber supplements and has tried a one-time Dulcolax suppository without much relief. He states over the last for 5 days she is only had 2 small bowel movements. She denies any blood in the stool or any abdominal pain, distention, bloating, nausea, or vomiting. She denies any fever, chills, shortness of breath, chest pain or pressure, syncope or presyncopal episodes. She has not had problems with constipation before and states that this has been going on for about 12 days now. Her last colonoscopy was when she was 17 years old for her IBS and she has not had one since. She denies any family history of colon cancer. ROS Const Constitutional: No chills, fatigue, fever(s), frequent falls, malaise, weakness, sleep problems or change in appetite Eyes Eyes: No blurry vision, change in vision, double vision, discharge or visual disturbances ENT ENT: No abnormal hearing, ear pain, ear pressure, tinnitus or dizziness/vertigo Resp Respiratory: No cough, shortness of breath or wheezing Cardio Cardiology: No chest pain at rest, chest pain with exertion, shortness of breath, dyspnea on exertion, generalized swelling, irregular heart rhythm, lightheadedness, orthopnea, fast heart rate or palpitations Gastro GI: Positive for constipation (x 2 weeks), nausea/dyspepsia and other (Hemorroids); no abdominal pain, change in bowel habits, diarrhea or vomiting Genitourinary-Female: No difficulty urinating, burning urination, painful urination, urinary incontinence, urinary frequency, urinary urgency, urinary hesitancy, urinary retention, Frequent nighttime urination/ nocturia, sexual problems, genital lesions, abnormal vaginal bleeding, pelvic pain, vaginal dryness, vaginal odor or Vaginal Itching Musc Musculoskeletal: No joint pain, back pain, joint swelling, limited range of motion, muscle weakness, numbness or tingling Skin Skin: No change in skin color, itching, rash or wounds Breast Breast: No breast lump or breast pain Neuro Neurology: No frequent falls, weakness, abnormal hearing, numbness, tingling, unsteady gait/balance, dizziness, loss of vision, memory loss or visual disturbances Psych Psychiatric: No memory loss, No anxiety, No change in appetite, No depression, No Thoughts of harming yourself/Others Endo Endocrine: No fatigue, heat intolerance, increased thirst/drinking, increased hunger or increased urination Aller/Imm Allergy/Immunologic: No wheezing, itchy eyes or seasonal allergy symptoms Bebo/Lymp Hematologic/Lymphatic: No easy bleeding, easy bruising or enlarged lymph nodes Exam Const General: cooperative, comfortable, no acute distress Nutritional Appearance: average body habitus, well nourished Orientation: alert, oriented x3 Limitations: mental status not altered Resp Effort AND Inspection: normal respiratory effort, able to speak in complete sentences, normal respiratory pattern, symmetric chest movement, no audible wheezes, no cough Auscultation: Bilateral: Clear to Auscultation Cardio Palpation: normal PMI Rate: regular rate Heart Sounds: S1 normal, S2 normal, normal S1 and S2, no click, no gallops, no murmurs, no rubs GI Inspection: normal to inspection Auscultation: normal bowel sounds, no hyperactive bowel sounds, no hypoactive bowel sounds Percussion: dullness to percussion (X4 quadrants) Palpation: soft, no hepatosplenomegaly Musc Musculoskeletal: No muscle weakness Skin General: no rashes or lesions noted, elasticity normal, turgor normal Lesions: no lesions Rashes: no rashes Neuro General: alert, awake, oriented x3, CN's II-XI intact bilaterally Speech: speech normal Gait: normal gait Motor: muscle tone normal throughout Extrem General: normal to inspection, normal gait, no edema, no pedal edema Psych Appearance: grossly normal Mental Status: mental status grossly normal Affect: normal affect Attitude: cooperative Thought Process: normal Assessment AND Plan 1. Constipation K59.00 2. IBS (irritable bowel syndrome) K58.9 Plan Patient is having complaints of constipation and is having small infrequent bowel movements. Will try her on MiraLAX and titrate up and down as necessary. Instructed her to increase her overall daily fiber intake and to utilize fiber one cereal. Instructed her to increase her fluid intake as well. She does have a history of IBS with diarrhea in the past, if her constipation continues, may need further investigation. Discussed red flag symptoms requiring urgent medical attention. Patient verbalized understanding. Patient to follow-up in 4 weeks or sooner if needed. Plan Detail Other Medications New: Follow Up 4 weeks or sooner if needed Coding Level of Care Code Off vis,est,level 3 Diagnoses Constipation K59.00 IBS (irritable bowel syndrome) K58.9 03/05/18 1445 <Electronically signed by Johnathan MATA> Date Johnathan MATA Cosigner Signature: Date (if applicable) CC: EMERGENCY DEPARTMENT Observed: 02/24/2018 Status: F Source: [place] SUMMARY 6:18 AM [facility] REPOSITORY [facility] Medical Records Department [address] [place] [address] Emergency Department Summary 02/24/18 0615 MR#: [id number] Acct: [id number] Name: MERCED OROZCO Rep #: [id number] : 1970 47 From: Sharita Lou MD PCP: Adelina Zelaya MD Status: REG ER - ER Visit Summary Date of Service: 02/24/18 Chief Complaint: Constipation History of Present Illness: The patient is a 47 F presenting with constipation. Patient states she has not had a bowel movement in the past 3 days. She has tried Dulcolax at home without relief. She has nausea with no vomiting. She has mild diffuse abdominal cramping. Denies fever. Denies other complaints. Physical Examination: Vitals are stable. Patient is afebrile. Alert no acute distress. HEENT exam is unremarkable. Lungs are clear and equal bilaterally. Heart is regular rate and rhythm. Abdomen is soft nontender nondistended. No guarding or rebound Rectal: no stool impaction Extremities are unremarkable. Skin is warm and dry. Remainder of exam is unremarkable. Emergency Department Course and Treatment: KUB shows moderate amount of stool. Patient was given Zofran po. She declined enema in the emergency department. She was given mag citrate for home. She is advised to follow-up with her primary care physician. Advised return to ED if worsening complaints. Disposition: Discharge home Impression: Constipation This note was generated with JRapid dictation software. It may contain incorrect words, spelling, and punctuation that were not noted in review of the chart prior to signing ED Disposition - Plan for ED Patient: Chief Complaint: Abd Pain Instructions: ED Constipation Referrals: Adelina Zelaya MD [Primary Care Provider] - What to do if you have Problems For any increased pain, shortness of breath, bleeding, nausea or vomiting, chest pain, or any unexpected problems, contact your Primary Care Provider. Call [facility] ([phone]) or report to the closest Emergency Room. Call 911 if necessary. 02/24/18 0618 <Electronically signed by Sharita Lou MD> Date Sharita Lou MD Cosigner Signature (If Indicated): Date CC: Adelina Zelaya MD DISCHARGE INSTRUCTION Observed: 02/24/2018 Status: F Source: [place] 6:14 AM [facility] Medical Records Department [address] [place] [address] Discharge Instruction 02/24/18613 MR#: [id number] Acct: [id number] Name: MERCED OROZCO Rep #: [id number] : 1970 47 From: Sharita Lou MD PCP: Adelina Zelaya MD Status: REG ER ED Disposition - Plan for ED Patient: Chief Complaint: Abd Pain Instructions: ED Constipation Referrals: Adelina Zelaya MD [Primary Care Provider] - What to do if you have Problems For any increased pain, shortness of breath, bleeding, nausea or vomiting, chest pain, or any unexpected problems, contact your Primary Care Provider. Call [facility] ([phone]) or report to the closest Emergency Room. Call 911 if necessary. 02/24/18613 <Electronically signed by Sharita Lou MD> Date Sharita Lou MD Cosigner Signature (If Indicated): Date CC: Adelina Zelaya MD ABDOMEN SINGLE VIEW Observed: 02/24/2018 Status: F Source: [place] 5:36 AM [facility] Imaging Services [address] [place] [address] Abdomen Single View MR#: [id number] Acct: [id number] Name: MERCED OROZCO Rep #: [id number] : 1970 F 47 From: Daniel Evans MD PCP: Adelina Zelaya MD Status: REG ER Study: Abdomen Single View Date of Exam: 02/24/18 Exam# [id number] Ordering Dr: Sharita Lou MD STUDY: X-RAY - ABDOMEN/PELVIS REASON FOR EXAM: Female, 47 years old. Constipation TECHNIQUE: Two AP supine views of the abdomen and pelvis. COMPARISON: None. FINDINGS: Normal visualized lung bases. There is a moderate amount of colonic fecal material. There is no demonstrated free abdominal air. The visualized liver, spleen and kidneys are grossly normal in size and morphology. Normal soft tissue structures. Normal visualized osseous structures. RAD/Abdomen Single View IMPRESSION: There is a moderate amount of colonic fecal material. Electronically Signed: Daniel Evans MD at 5:58 EDT Tel , Service support , CC: Sharita Lou MD; Adelina Zelaya MD Smelter Liner: Signed INTERNAL MEDICINE Observed: 02/14/2018 Status: F Source: [place] OFFICE VISIT 4:33 PM [facility] Internal Medicine [address] [place] [address] [address] [place] [address] OFFICE VISIT Date of Service: 02/14/18 MR#: [id number] Acct: [id number] Name: MERCED OROZCO Rep #: [id number] : 1970 Provider: Adelina Zelaya MD Age/Sex: 47/F Location: [facility] Status: Signed Intake Vital Signs02/14/18 Height 5 ft 7 in 02/14/18 Weight: 229 lb 02/14/18 Body Mass Index (BMI) 35.9 02/14/18 Blood Pressure 135/73 H 02/14/18 Blood Pressure Location Lt brachial Intake Visit Reasons: R/S FROM 02/12/18 Chief Complaint: FU Diabetes Is patient in pain?: No Allergies No Known Allergies Allergy (Verified 02/14/18 13:40) Medications Glimepiride [Amaryl] 4 mg PO BID 11/04/14 [History Confirmed 02/14/18] lisinopril 20 mg tablet 20 mg PO QDAY 11/01/17 [History Confirmed 02/14/18] atorvastatin 20 mg tablet 20 mg PO QDAY #90 tab 11/05/17 [Rx Confirmed 02/14/18] insulin glargine (U-100) 100 unit/mL (3 mL) subcutaneous pen 42 unit SC BID ml 01/29/18 [History Confirmed 02/14/18] venlafaxine ER 150 mg capsule,extended release 24 hr 150 mg PO QDAY #90 cap 01/29/18 [Rx Confirmed 02/14/18] L.acidophil-L.casei-B.bifid-B.longum-FOS 2 billion cell-50 mg capsule mg PO cap 02/14/18 [History Confirmed 02/14/18] dulaglutide 0.75 mg/0.5 mL subcutaneous pen injector 0.75 mg SC QWEEK #0.5 ml 02/14/18 [Rx Confirmed 02/14/18] dulaglutide 1.5 mg/0.5 mL subcutaneous pen injector 1.5 mg SC QWEEK #2 ml 02/14/18 [Rx Confirmed 02/14/18] fluconazole 150 mg tablet 150 mg PO Q3D 0 Days #2 tab 02/14/18 [Rx Confirmed 02/14/18] turmeric 400 mg capsule 1 mg PO DAILY cap 02/14/18 [History Confirmed 02/14/18] PFS Medical History IBS (irritable bowel syndrome) (Chronic) High triglycerides (Chronic) Frequent headaches (Chronic) Depression (Chronic) Arthritis (Chronic) Diabetes (Chronic) Surgical History Status post incision and drainage (Acute) History of tubal ligation (Acute) Family History Aunt Breast cancer Mother Diabetes Hypertension High cholesterol CVA (cerebral vascular accident) ulcers Father Diabetes Skin cancer Grandmother Diabetes Heart disease Aunt Parkinson disease Social History Smoking Status: Former smoker how long ago did patient quit smokin alcohol intake: never substance use type: does not use what type of physical activity do you participate in: walking frequency: 1-2 times per week HPI HPI Chief Complaint: FU Diabetes Details: MERCED OROZCO, is a 47yo F who presents to the office today due to complaints of increased vaginal itching and mild vaginal discharge. She has a history of recurrent vaginal candidiasis largely due to poorly controlled diabetes. She also brings along her blood sugar log which shows average blood sugars in the 200s. ROS Const Constitutional: No chills, fatigue, fever(s), frequent falls, malaise, weakness, sleep problems or change in appetite Eyes Eyes: No blurry vision, change in vision, double vision, discharge or visual disturbances ENT ENT: No abnormal hearing, ear pain, ear pressure, tinnitus or dizziness/vertigo Resp Respiratory: No cough, shortness of breath or wheezing Cardio Cardiology: No chest pain at rest, chest pain with exertion, shortness of breath, dyspnea on exertion, generalized swelling, irregular heart rhythm, lightheadedness, orthopnea, fast heart rate or palpitations Gastro GI: No abdominal pain, change in bowel habits, constipation, diarrhea, nausea/dyspepsia or vomiting Genitourinary-Female: Positive for Vaginal Itching and other (Some clear discharge); no difficulty urinating, burning urination, painful urination, urinary incontinence, urinary frequency, urinary urgency, urinary hesitancy, urinary retention, Frequent nighttime urination/ nocturia, sexual problems, genital lesions, abnormal vaginal bleeding, pelvic pain, vaginal dryness or vaginal odor Musc Musculoskeletal: No joint pain, back pain, joint swelling, limited range of motion, numbness or tingling Skin Skin: No change in skin color, itching, rash or wounds Breast Breast: No breast lump or breast pain Neuro Neurology: No frequent falls, weakness, abnormal hearing, numbness, tingling, unsteady gait/balance, dizziness, loss of vision, memory loss or visual disturbances Psych Psychiatric: No memory loss, No anxiety, No change in appetite, No depression, No Thoughts of harming yourself/Others Endo Endocrine: No fatigue, heat intolerance, increased thirst/drinking, increased hunger or increased urination Aller/Imm Allergy/Immunologic: No wheezing, itchy eyes or seasonal allergy symptoms Bebo/Lymp Hematologic/Lymphatic: No easy bleeding, easy bruising or enlarged lymph nodes Exam Const General: cooperative, no acute distress Orientation: alert, awake, oriented x3 HENMT Head: atraumatic, normocephalic Ears: hearing grossly normal bilaterally Resp Effort AND Inspection: normal respiratory effort, able to speak in complete sentences Auscultation: Bilateral: Clear to Auscultation Cardio Rate: regular rate Rhythm: regular rhythm Heart Sounds: S1 normal, S2 normal GI Palpation: soft, no hepatosplenomegaly Speculum Exam - Vagina: vaginal erythema, other (Mild cream- colored discharge noted.) Neuro General: alert, awake, oriented x3, moves all extremities, CN's II-XI intact bilaterally Extrem General: no clubbing, cyanosis or edema Psych Appearance: grossly normal Mental Status: mental status grossly normal Affect: normal affect Assessment AND Plan 1. Vagina, candidiasis B37.3 Plan Recurrent. Done well with fluconazole in the past. OTC's not very helpful. Prescription sent. Advised to call with any persistent or concerning symptoms. 2. Type 2 diabetes mellitus E11.9 Plan Poorly controlled. Initial dose of Trulicity given today. (0.75 mg). Prescription for 1.5 mg sent to her pharmacy. May begin next week. Dietary/lifestyle modification strongly encouraged. Follow-up with log in 6 weeks. This note was generated with JRapid dictation software. It may contain incorrect words, spelling, and punctuation that were not noted in checking the note before signing. Plan Detail Other Medications New: Coding Level of Care Code Off vis,est,level 4 Diagnoses Vagina, candidiasis B37.3 Type 2 diabetes mellitus E11.9 02/14/18 1631 <Electronically signed by Adelina Zelaya MD> Date Adelina Zelaya MD Cosigner Signature: Date (if applicable) CC: SHOULDER MIN 2 VIEWS Observed: 02/10/2018 Status: F Source: [place] 11:19 AM [facility] REPOSITORY [facility] Imaging Services [address] [place] [address] Shoulder min 2 Views MR#: [id number] Acct: [id number] Name: MERCED OROZCO Rep #: [id number] : 1970 F 47 From: Ash Burks MD PCP: Adelina Zelaya MD Status: REG CLI Study: Shoulder min 2 Views Date of Exam: 02/10/18 Exam# [id number] Ordering Dr: Adelina Zelaya MD STUDY: X-RAY - LEFT SHOULDER REASON FOR EXAM: Female, 47 years old. Bilateral shoulder pain TECHNIQUE: 4 view(s) of the shoulder. COMPARISON: Contralateral shoulder same date. FINDINGS: Small foci of calcification overlying the greater tubercle of the humerus at the expected location of the supraspinatus or infraspinatus insertion, consistent with calcific tendinosis. Osseous structures about the shoulder are otherwise normal. Periarticular soft tissues normal. RAD/Shoulder min 2 Views IMPRESSION: Evidence of calcific tendinosis of the rotator cuff, otherwise unremarkable shoulder. Electronically Signed: Ash Burks, at 17:21 EDT Tel , Service support , CC: Adelina Zelaya MD Smelter Liner: Signed SHOULDER MIN 2 VIEWS Observed: 02/10/2018 Status: F Source: [place] 11:17 AM [facility] REPOSITORY [facility] Imaging Services [address] [place] [address] Shoulder min 2 Views MR#: [id number] Acct: [id number] Name: MERCED OROZCO Rep #: [id number] : 1970 F 47 From: Ash Burks MD PCP: Adelina Zelaya MD Status: REG CLI Study: Shoulder min 2 Views Date of Exam: 02/10/18 Exam# [id number] Ordering Dr: Adelina Zelaya MD STUDY: X-RAY - RIGHT SHOULDER REASON FOR EXAM: Female, 47 years old. Bilateral shoulder pain TECHNIQUE: 4 view(s) of the shoulder. COMPARISON: Contralateral shoulder same date. Chest x-ray 05/08/2016. 11/28/2016. FINDINGS: Normal acromioclavicular joint. No fracture. Small foci of calcification overlying the greater tubercle of the humerus at the supraspinatus/infraspinatus insertion consistent with calcific tendinosis. RAD/Shoulder min 2 Views IMPRESSION: Evidence of calcific tendinosis of the rotator cuff. Osseous structures normal. Electronically Signed: Ash Burks, at 17:20 EDT Tel , Service support , CC: Adelina Zelaya MD Smelter Liner: Signed INTERNAL MEDICINE Observed: 02/03/2018 Status: F Source: [place] OFFICE VISIT 3:18 PM [facility] Internal Medicine [address] [place] [address] [place] [address] OFFICE VISIT Date of Service: 01/29/18 MR#: [id number] Acct: [id number] Name: MERCED OROZCO Rep #: [id number] : 1970 Provider: Adelina Zelaya MD Age/Sex: 47/F Location: [facility] Status: Signed Intake Vital Signs01/29/18 Height 5 ft 7 in 01/29/18 Weight: 230 lb 01/29/18 Body Mass Index (BMI) 36.0 01/29/18 Blood Pressure 126/85 H Intake Visit Reasons: FU APPT Chief Complaint: FU Appt - shoulders Is patient in pain?: Yes (1) Allergies No Known Allergies Allergy (Verified 01/29/18 14:32) Medications Glimepiride [Amaryl] 4 mg PO BID 11/04/14 [History Confirmed 01/29/18] lisinopril 20 mg tablet 20 mg PO QDAY 11/01/17 [History Confirmed 01/29/18] atorvastatin 20 mg tablet 20 mg PO QDAY #90 tab 11/05/17 [Rx Confirmed 01/29/18] insulin glargine (U-100) 100 unit/mL (3 mL) subcutaneous pen 42 unit SC BID ml 01/29/18 [History Confirmed 01/29/18] venlafaxine ER 150 mg capsule,extended release 24 hr 150 mg PO QDAY #90 cap 01/29/18 [Rx Confirmed 01/29/18] PFSH Medical History IBS (irritable bowel syndrome) (Chronic) High triglycerides (Chronic) Frequent headaches (Chronic) Depression (Chronic) Arthritis (Chronic) Diabetes (Chronic) Surgical History Status post incision and drainage (Acute) History of tubal ligation (Acute) Family History Aunt Breast cancer Mother Diabetes Hypertension High cholesterol CVA (cerebral vascular accident) ulcers Father Diabetes Skin cancer Grandmother Diabetes Heart disease Aunt Parkinson disease Social History Smoking Status: Former smoker how long ago did patient quit smokin alcohol intake: never substance use type: does not use what type of physical activity do you participate in: walking frequency: 1-2 times per week HPI HPI Chief Complaint: FU Appt - shoulders Details: MERCED OROZCO, is a 47yo F who presents to the office today for follow-up. She was seen over a month ago for bilateral shoulder pain and referred to physical therapy. She had 7 out of 8 sessions of physical therapy with no significant improvement in the pain and actually noted some worsening. Most recent A1c of 9. She does not bring along a log however is notes that her blood sugars are typically in the 200s in the morning. Also recently switched to Effexor. Symptoms are said to have improved on Effexor. Currently at 75 mg daily. Sleep study done positive for sleep apnea. ROS Const Constitutional: No chills, fatigue, fever(s), frequent falls, malaise, weakness, sleep problems or change in appetite Eyes Eyes: No blurry vision, change in vision, double vision, discharge or visual disturbances ENT ENT: No abnormal hearing, ear pain, ear pressure, tinnitus or dizziness/vertigo Resp Respiratory: No cough, shortness of breath or wheezing Cardio Cardiology: No chest pain at rest, chest pain with exertion, shortness of breath, dyspnea on exertion, generalized swelling, irregular heart rhythm, lightheadedness, orthopnea, fast heart rate or palpitations Gastro GI: No abdominal pain, change in bowel habits, constipation, diarrhea, nausea/dyspepsia or vomiting Genitourinary-Female: No difficulty urinating, burning urination, painful urination, urinary incontinence, urinary frequency, urinary urgency, urinary hesitancy, urinary retention, Frequent nighttime urination/ nocturia, sexual problems, genital lesions, abnormal vaginal bleeding, pelvic pain, vaginal dryness, vaginal odor or Vaginal Itching Musc Musculoskeletal: Positive for joint pain (Bilat shoulders); no back pain, joint swelling, limited range of motion, numbness or tingling Skin Skin: No change in skin color, itching, rash or wounds Breast Breast: No breast lump or breast pain Neuro Neurology: No frequent falls, weakness, abnormal hearing, numbness, tingling, unsteady gait/balance, dizziness, loss of vision, memory loss or visual disturbances Psych Psychiatric: No memory loss, No anxiety, No change in appetite, No depression, No Thoughts of harming yourself/Others Endo Endocrine: No fatigue, heat intolerance, increased thirst/drinking, increased hunger or increased urination Aller/Imm Allergy/Immunologic: No wheezing, itchy eyes or seasonal allergy symptoms Bebo/Lymp Hematologic/Lymphatic: No easy bleeding, easy bruising or enlarged lymph nodes Exam Const General: cooperative, no acute distress Orientation: alert, awake, oriented x3 HENMT Head: atraumatic, normocephalic Ears: hearing grossly normal bilaterally Resp Effort AND Inspection: normal respiratory effort, able to speak in complete sentences Auscultation: Bilateral: Clear to Auscultation Cardio Rate: regular rate Rhythm: regular rhythm Heart Sounds: S1 normal, S2 normal GI Palpation: soft, no hepatosplenomegaly Neuro General: alert, awake, oriented x3, moves all extremities, CN's II-XI intact bilaterally Extrem General: no clubbing, cyanosis or edema Psych Appearance: grossly normal Mental Status: mental status grossly normal Affect: normal affect Assessment AND Plan 1. Bilateral shoulder pain M25.511; M25.512 Plan Persisting/worsening. Physical therapy not very helpful. MRI ordered. Possibly refer to Ortho on review. Orders Orders: 2. Type 2 diabetes mellitus E11.9 Plan Poorly controlled. Last A1c of 9. No proteinuria. Switch to twice daily dose of insulin glargine (42 units twice daily). Will probably start on a GLP-1 after insurance switch. She states she had been on Trulicity in the past and did very well. Continue other lifestyle and dietary modifications. Continue lisinopril and atorvastatin. Advised to follow-up in 2 weeks with blood sugar log. Advised to follow-up with podiatry. She does follow-up with an gluing machine operator electronic. 3. Depression with anxiety F41.8 Plan Better however not optimal. Increase Effexor to 150 mg daily. Will follow 4. Sleep apnea G47.30 Plan Recently done sleep study suggestive of sleep apnea. Scheduled to start use of a CPAP system. Compliance encouraged. 5. Healthcare maintenance Z00.00 Plan Follows up with a branch library clerk Dr. Sheela Harris and has had a routine Pap smear and mammogram. Flu shot recommended. This note was generated with JRapid dictation software. It may contain incorrect words, spelling, and punctuation that were not noted in checking the note before signing. Plan Detail Other Medications Changed: Coding Level of Care Code Off vis,est,level 4 Diagnoses Bilateral shoulder pain M25.511; M25.512 Type 2 diabetes mellitus E11.9 Depression with anxiety F41.8 Sleep apnea G47.30 Healthcare maintenance Z00.00 02/03/18 8518 <Electronically signed by Adelina Zelaya MD> Date Adelina Zelaya MD Cosigner Signature: Date (if applicable) CC: URGENT CARE VISIT Observed: 01/10/2018 Status: F Source: [place] REPORT 11:59 AM [facility] [address] [place] [address] [address] [place] [address] OFFICE VISIT Date of Service: 01/10/18 MR#: [id number] Acct: [id number] Name: ASADSUE COONCYNTHIA Burris Rep #: [id number] : 1970 Provider: Toney CHAWLA Age/Sex: 47/F Location: [facility] Status: Signed Intake Intake Visit Reasons: PHYSICAL - [place] Allergies No Known Allergies Allergy (Verified 12/09/17 13:10) Medications Glimepiride [Amaryl] 4 mg PO BID 11/04/14 [History Confirmed 12/09/17] Insulin Glargine,Hum.rec.anlog [Basaglar Kwikpen U-100] 80 units SQ DAILY 11/28/16 [History Confirmed 12/09/17] lisinopril 20 mg tablet 20 mg PO QDAY 11/01/17 [History Confirmed 12/09/17] atorvastatin 20 mg tablet 20 mg PO QDAY #90 tab 11/05/17 [Rx Confirmed 12/09/17] methylprednisolone 4 mg tablets in a dose pack See Label Instructions PO PER PKG DIR #21 tab 12/09/17 [Rx Confirmed 12/09/17] venlafaxine ER 75 mg capsule,extended release 24 hr 75 mg PO QDAY #60 cap 12/09/17 [Rx Confirmed 12/09/17] PFSH Medical History IBS (irritable bowel syndrome) (Chronic) High triglycerides (Chronic) Frequent headaches (Chronic) Depression (Chronic) Arthritis (Chronic) Diabetes (Chronic) Surgical History Status post incision and drainage (Acute) History of tubal ligation (Acute) Family History Aunt Breast cancer Mother Diabetes Hypertension High cholesterol CVA (cerebral vascular accident) ulcers Father Diabetes Skin cancer Grandmother Diabetes Heart disease Aunt Parkinson disease Social History Smoking Status: Former smoker how long ago did patient quit smokin alcohol intake: never substance use type: does not use what type of physical activity do you participate in: walking frequency: 1-2 times per week HPI HPI Details: MERCED HUDSPITH, is a 47 F who presents to the office today for preemployment physical. Please see corresponding scanned documents with today's date. Office Procedures Physical Exam Coding PE Coding Pre-employment PE: Yes Coding Level of Care Code No Charge Additional Codes PE Coding - Pre-employment PE: Yes (PREPE) 01/10/18 1151 <Electronically signed by Toney CHAWLA> Date Toney CHAWLA Cosigner Signature: Date (if applicable) CC: INITAL EVALUATION (1) Observed: 12/23/2017 Status: F Source: [place] - PT 1:54 PM [facility] REPOSITORY [facility] Physical Therapy [facility] [address] [place] [address]. [address] [place] [address] Fax REHABILITATION SERVICES INITIAL EVALUATION MR#: [id number] Acct: [id number] Name: MERCED OROZCO Rep #: [id number] : 1970 47 From: Desiree Casas DPT Referring Dr.: Adelina Zelaya MD Status: REG [facility] Insurance: [facility] [id number] SELF PAY INSURANCE Patient's Visit Information MERCED OROZCO is a 47 year old F referred to Physical Therapy by Adelina Zelaya MD with a diagnosis of Bilateral Shoulder Pain. Date of Evaluation: 12/23/17 Physical Therapist: Desiree Casas - Visit Plan Frequency: 2-3x /Week Duration: 4 Months Plan: Focus on scap s/s and postural correction- modalities as needed - Subjective Subjective: Bilateral shoulder pain about a year- insidious onset- was exercising using the bands and they were sore and just got worse. Left use to be the worst but now its the right. Feels they have gotten worse. The pain is in the anterior shoulder and radites to the elbow on the right. Right hand dominate. Describes the pain as searing pains- feels like someone is pulling her apart. Radiating pain is sharp and sometimes burning. Was having N/T in the hands but its gone now- Dr. Cruz thinks she has radial tunnel- 2 months since symptoms. Worst: 10/10 Agg: reaching behind her, over head, hook bra. Best: 0/10 Eases: none. MD had her take a predniose dose pack which did not help. No x-rays or MRI of the shoulder. Sleep: disturbed- hard to get comfortable and will wake her up- side sleeper. No neck pain currently but has had neck pain previously-does not see a chiro or massage therapist. No RUSH, blurred vision or dizziness. PMHx: type 2 DM, blood sugar is not under control (250 is normal) Meds: lisinopril, torvastatin, glomeperide, baslogar injection, effexor. 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 - Objective Posture: FH, RS- does correc with VC's but does not maintain. Gait: good arm swing-WFL. Palpation: tender along AC joint, medial border of the scapula. ROM: Cervical: WNL, Shoulder: WNL with pain at end ranges of Flexion, abduction and IR. Right IR: to belt line. Elbow/Wrist/hand: WNL. Strength: scap: fair minus, shoulder: 4+/5 throughout with pain IR/ER. Elbow/Wrist/Supervisor Screen Making: WNL. Special Test: Impingment: positive (neer and galicia), empty can: negative. Sensation: WNL - Goals Goal 1:: Patient will be I with HEP and progression Goal Time Frame: 4-6 Weeks Goal 2:: Patient will maintain proper posture t/o tx session to demo increased scap s/s. Goal Time Frame: 4-6 Weeks Goal 3:: Patient will demo full AROM with 0/10 pain Goal Time Frame: 4-6 Weeks - Rehabilitation Potential Physical Therapy Diagnosis: Patient presents with hypomobility- she has decreased ROM, strength and muscular endurance leading to poor posture and increased pain with ADL's. Rehabilitation Potential: Good - Anticipated Interventions Patient/Client Instruction: Educate patient on: Benefits of Fitness Program Therapeutic Exercise to Include: Strength training, Coordination, Body mechanics, Postural training, Active ROM, Scapular Strength/Stabilization For the Purpose of:: To improve muscle performance and motor function TENS: Yes Cryotherapy (ice pack, ice massage): Yes Thermo therapy (hot pack): Yes Ultrasound (thermal/non thermal): Yes For the Purpose of:: To decrease pain Thank you for the opportunity to evaluate your patient. For Medicare and Medicare HMO plans, please review the plan of care and approve it. It will need to be FAXED BACK to us at [phone] for Medicare purposes. Please let me know if there are questions or concerns regarding this plan of care. Physician Signature: Date: <Electronically signed by Desiree Casas DPT> 12/23/17 1354 CC: Adelina Zelaya MD ELR Signed For Medicare only, by signing this I certify the plan of care. Physicians Signature Date MICROALB:CREAT Collected: 12/11/2017 Status: F Source: [place] [facility] [place] 9:58 AM [facility] REPOSITORY TYPE CODE TESTS RESULT OUT OF RANGE REFERENCE UNITS LAB L501.1200 NO RANGE EST. mg/dL Normal UR CREAT 233.00 LAB L502.0500 NO RANGE EST. mg/L Normal 26.8 MICROALBUMIN ,UR LAB L502.0600 <30 mg/g CRE mg/g CRE Normal 11.5 MALB:CREAT Performed By: #### L502.0250, L501.9985 #### [facility] [address] [place], [address] HEMOGLOBIN A1C Collected: 12/11/2017 Status: F Source: [place] 9:58 AM [facility] REPOSITORY TYPE CODE TESTS RESULT OUT OF RANGE REFERENCE UNITS LAB L501.9985 4.2-6.3 % High HGB A1C 9.0 Performed By: #### L502.0250, L501.9985 #### [facility] [address] [place], [address] INTERNAL MEDICINE Observed: 12/09/2017 Status: F Source: [place] OFFICE VISIT 2:11 PM [facility] REPOSITORY [facility] [address] [place] [address] [place] [address] OFFICE VISIT Date of Service: 12/09/17 MR#: [id number] Acct: [id number] Name: MERCED OROZCO Rep #: [id number] : 1970 Provider: Adelina Zelaya MD Age/Sex: 47/F Location: [facility] Status: Signed Intake Vital Signs12/09/17 Height 5 ft 7 in 12/09/17 Weight: 230 lb 12/09/17 Body Mass Index (BMI) 36.0 12/09/17 Blood Pressure 117/78 Intake Visit Reasons: 1 mo fu Chief Complaint: 1 MO FU shoulder pain Is patient in pain?: Yes (shoulders) Pain scale (1-10): 8 Allergies No Known Allergies Allergy (Verified 12/09/17 13:10) Medications Glimepiride [Amaryl] 4 mg PO BID 11/04/14 [History Confirmed 12/09/17] Insulin Glargine,Hum.rec.anlog [Basaglar Kwikpen U-100] 80 units SQ DAILY 11/28/16 [History Confirmed 12/09/17] lisinopril 20 mg tablet 20 mg PO QDAY 11/01/17 [History Confirmed 12/09/17] atorvastatin 20 mg tablet 20 mg PO QDAY #90 tab 11/05/17 [Rx Confirmed 12/09/17] methylprednisolone 4 mg tablets in a dose pack See Label Instructions PO PER PKG DIR #21 tab 12/09/17 [Rx Confirmed 12/09/17] venlafaxine ER 75 mg capsule,extended release 24 hr 75 mg PO QDAY #60 cap 12/09/17 [Rx Confirmed 12/09/17] [facility] Medical History IBS (irritable bowel syndrome) (Chronic) High triglycerides (Chronic) Frequent headaches (Chronic) Depression (Chronic) Arthritis (Chronic) Diabetes (Chronic) Surgical History Status post incision and drainage (Acute) History of tubal ligation (Acute) Family History Aunt Breast cancer Mother Diabetes Hypertension High cholesterol CVA (cerebral vascular accident) ulcers Father Diabetes Skin cancer Grandmother Diabetes Heart disease Aunt Parkinson disease Social History Smoking Status: Former smoker how long ago did patient quit smokin alcohol intake: never substance use type: does not use what type of physical activity do you participate in: walking frequency: 1-2 times per week HPI HPI Chief Complaint: 1 MO FU shoulder pain Details: MERCED OROZCO, is a 47yo F who presents to the office today for follow-up of her chronic medical conditions. She has no acute complaints at this time. She has not followed up with physical therapy as suggested during her last visit for her bilateral shoulder pain. Pain is said to be persistent. She also is concerned about her progressive depression. She has been on paroxetine 40 mg daily without any significant improvement. She denies any homicidal or suicidal ideations or attempts. ROS Const Constitutional: No chills, fatigue, fever(s), frequent falls, malaise, weakness, sleep problems or change in appetite Eyes Eyes: No blurry vision, change in vision, double vision, discharge or visual disturbances ENT ENT: No abnormal hearing, ear pain, ear pressure, tinnitus or dizziness/vertigo Resp Respiratory: No cough, shortness of breath or wheezing Cardio Cardiology: No chest pain at rest, chest pain with exertion, shortness of breath, dyspnea on exertion, generalized swelling, irregular heart rhythm, lightheadedness, orthopnea, fast heart rate or palpitations Gastro GI: No abdominal pain, change in bowel habits, constipation, diarrhea, nausea/dyspepsia or vomiting Genitourinary-Female: No difficulty urinating, burning urination, painful urination, urinary incontinence, urinary frequency, urinary urgency, urinary hesitancy, urinary retention, Frequent nighttime urination/ nocturia, sexual problems, genital lesions, abnormal vaginal bleeding, pelvic pain, vaginal dryness, vaginal odor or Vaginal Itching Musc Musculoskeletal: Positive for joint pain (Bilat shoulders), numbness (Both hands) and tingling; no back pain, joint swelling or limited range of motion Skin Skin: Positive for other (Bump on Rt forearm); no change in skin color, itching, rash or wounds Breast Breast: Positive for other (Bump on Rt forearm); no breast lump or breast pain Neuro Neurology: Positive for numbness (Both hands) and tingling; no frequent falls, weakness, abnormal hearing, unsteady gait/balance, dizziness, loss of vision, memory loss or visual disturbances Psych Psychiatric: No memory loss, No anxiety, No change in appetite, No depression, No Thoughts of harming yourself/Others Endo Endocrine: No fatigue, heat intolerance, increased thirst/drinking, increased hunger or increased urination Aller/Imm Allergy/Immunologic: No wheezing, itchy eyes or seasonal allergy symptoms Bebo/Lymp Hematologic/Lymphatic: No easy bleeding, easy bruising or enlarged lymph nodes Exam Const General: cooperative, no acute distress Orientation: alert, awake, oriented x3 [facility] Head: atraumatic, normocephalic Ears: hearing grossly normal bilaterally Resp Effort AND Inspection: normal respiratory effort, able to speak in complete sentences Auscultation: Bilateral: Clear to Auscultation Cardio Rate: regular rate Rhythm: regular rhythm Heart Sounds: S1 normal, S2 normal GI Palpation: soft, no hepatosplenomegaly Neuro General: alert, awake, oriented x3, moves all extremities, CN's II-XI intact bilaterally Extrem General: no clubbing, cyanosis or edema Psych Appearance: grossly normal Mental Status: mental status grossly normal Affect: normal affect Assessment AND Plan 1. Bilateral shoulder pain M25.511; M25.512 Plan Possibly secondary to tendinitis. Again referred to physical therapy. Has responded well to Medrol Dosepak in the past. Refill given. Advised to adjust insulin joint steroid use. Orders Referrals: 2. Depression with anxiety F41.8 Plan Chronic. Has not done well on current medication. Taper off paroxetine and cross taper with Effexor. Increase to 150 mg daily after 2 weeks. Follow-up in 1 months. 3. Type 2 diabetes mellitus E11.9 Plan Chronic. Well-controlled per patient. A1c ordered. Urine microalbumin also ordered. Continue current medications. This note was generated with JRapid dictation software. It may contain incorrect words, spelling, and punctuation that were not noted in checking the note before signing. Orders Orders: Plan Detail Other Medications New: Discontinued: Coding Level of Care Code Off vis,est,level 4 Diagnoses Bilateral shoulder pain M25.511; M25.512 Depression with anxiety F41.8 Type 2 diabetes mellitus E11.9 12/09/17 1411 <Electronically signed by Adelina Zelaya MD> Date Adelina Zelaya MD Cosigner Signature: Date (if applicable) CC: SCREENING MAMM (CAD), Observed: 09/09/2017 Status: F Source: [facility] 12:55 PM [facility] REPOSITORY [facility] Imaging Services [address] [place] [id number] SCREENING MAMM (CAD), BIL MR#: [id number] Acct: [id number] Name: MERCED OROZCO Rep #: [id number] : 1970 F 47 From: Angel Day MD PCP: Ashish Medley Status: [facility] Study: SCREENING MAMM (CAD), BILAT Date of Exam: 09/09/17 Exam# [id number] Ordering Dr: Carleen Jauregui MD MAMMOGRAPHY - BILATERAL SCREENING REASON FOR EXAM: Female, 47 years old. Routine annual screening examination. PERTINENT HISTORY: Aunt with breast cancer. TECHNIQUE: Digital bilateral breast jorden (3D mammographic acquisition) in the CC and MLO projections. 2-D mediolateral oblique (MLO) and craniocaudad (CC) views of both breasts were obtained. CAD: Full Field Digital Mammography with Computer Added Detection was performed. COMPARISON: Comparison is made with prior study dated September 07, 2016. FINDINGS: Breast Composition: The breasts are almost entirely fatty. There are no dominant masses or suspicious calcifications. Stable benign-appearing small bilateral axillary lymph nodes. No other significant abnormalities are identified. There has been no significant change since the prior study. BI/SCREENING MAMM (CAD), BILAT IMPRESSION: Stable bilateral screening mammogram. Yearly follow-up mammogram recommended. (A) ASSESSMENT CATEGORY: BIRADS Category 2: Benign. A letter regarding these results will be sent to the patient by the facility within 30 days. Approximately 10% of breast cancers are not detected by mammography. A normal mammogram should not delay biopsy of a clinically suspicious abnormality. [id number] Electronically Signed: Angel Day MD at 9:29 EDT Tel [phone], Service support , CC: Ashish Medley; Carleen Marquis MD Smelter Liner: Signed CBC W/DIFF, AUTOMATED Collected: 08/15/2017 Status: F Source: [place] 11:20 AM [facility] REPOSITORY TYPE CODE TESTS RESULT OUT OF RANGE REFERENCE UNITS LAB L100.1000 4.4-11.0 K/mm3 Normal WBC 9.6 LAB L100.1200 4.2-5.4 M/mm3 Normal RBC 4.76 LAB L100.1300 12.0-15.0 g/dl Normal HGB 13.7 LAB L100.1400 37-47 % Normal HCT 41.0 LAB L100.1500 81-99 fL Normal MCV 86.1 LAB L100.1600 27.0-32.0 pg Normal MCH 28.8 LAB L100.1700 32-36 g/gl Normal MCHC 33.4 LAB L100.1810 11.6-14.6 % Normal RDW CV 13.1 LAB L100.1820 35.1-43.9 fl Normal RDW SD 41.6 LAB L100.1900 150-450 K/mm3 Normal PLT 338 LAB L100.2000 6.2-12.0 fl Normal MPV 9.4 LAB L100.2100 47-70 % Normal NEUT% 68.5 LAB L100.2200 19-41 % Normal LY% 25.7 LAB L100.2300 0-10 % Normal MONO% 4.8 LAB L100.2400 0-5 % Normal EO% 0.8 LAB L100.2500 0-1 % Normal BASO% 0.1 LAB L100.2550 0.0-0.9 % Normal IM GRAN % 0.100 Result Comment: IG% - Immature Granulocytes (promyelocytes, myelocytes and metamyelocytes) > 1% indicates that a LEFT SHIFT is Present. LAB L100.2620 2.0-7.7 X10 3/uL Normal Absolute Neut 6.6 LAB L100.2720 0.83-4.51 X10 3/ul Normal Absolute Lymph 2.48 Performed By: #### L100.0100 #### [facility] [address] [place], [address] COMPREHENSIVE METABOLIC Collected: 08/15/2017 Status: F Source: [facility] 11:20 AM [facility] REPOSITORY TYPE CODE TESTS RESULT OUT OF RANGE REFERENCE UNITS LAB L501.0100 74-106 mg/dL Normal GLU 85 Result Comment: Please note revised GLUCOSE reference range effective 2017. LAB L501.1000 7-18 mg/dL Normal BUN 12 LAB L501.1100 0.55-1.02 mg/dL Normal CREAT,SERUM 0.69 Result Comment: The validity of the calculated GFR AND GFRAA in patients over 70 years has not been determined. Clinical correlation is essential. LAB L501.1110 >60 mL/min Normal EST GFR 96 Result Comment: Non- GFR Calc LAB L501.1115 >60 mL/min Normal EST GFR - AA 116 Result Comment: GFR Calc LAB L501.1300 10-20 RATIO Normal BUN/CRE 17.3 LAB L501.1500 6.4-8.2 g/dL Low T PROT 6.3 LAB L501.1800 3.2-5.0 g/dL Low ALB 3.1 LAB L501.1950 2.2-4.2 g/dL Normal GLOB 3.2 LAB L501.2000 0.9-2.4 RATIO Normal A/G 1.0 LAB L501.2200 8.5-10.1 mg/dL Low CA 8.4 LAB L501.4100 15-37 U/L Low AST 10 LAB L501.4305 45-117 U/L Normal ALK P 58 LAB L501.4405 13-56 U/L Normal ALT 16 Result Comment: Please note revised ALT reference range effective 2017. LAB L501.4600 0.20-1.00 mg/dL Normal T BILI 0.30 LAB L501.5300 136-145 mmol/L Normal NA 142 LAB L501.5600 3.5-5.1 mmol/L Low K 3.4 LAB L501.5900 98-107 mmol/L Normal CL 107 LAB L501.6100 21.0-32.0 mmol/L Normal CO2 27.0 LAB L501.6200 5-15 Normal GAP 8 Performed By: #### L500.4050, L500.4100, L501.9520, L506.0400 #### [facility] [address] [place], [place], [address] LIPID PROFILE Collected: 08/15/2017 Status: F Source: [place] 11:20 AM [facility] REPOSITORY TYPE CODE TESTS RESULT OUT OF RANGE REFERENCE UNITS LAB L501.4900 200 mg/dL Normal CHOL 165 Result Comment: <200 mg/dL Desirable 200-240 mg/dL Borderline >240 mg/dL High Risk LAB L501.5000 mg/dL Normal TRIG 71 Result Comment: The drugs N-Acetylcysteine and Metamizole may falsely depress this assay. Serum Triglycerides Reference Interval Normal <150 mg/dL Borderline high 150 - 199 mg/dL High 200 - 499 mg/dL Very High > or = 500 mg/dL LAB L501.6400 mg/dL Normal HDL 51 Result Comment: The drugs N-Acetylcysteine and Metamizole may falsely depress this assay. Reference Range HDL <40 mg/dL Low HDL Cholesterol HDL >or= 60 mg/dL High HDL Cholesterol LAB L501.6500 0-130 mg/dL Normal LDL 100 LAB L501.6600 5-40 mg/dL Normal VLDL 14 Performed By: #### L500.4050, L500.4100, L501.9520, L506.0400 #### [facility] [address] [place], [address] THYROID STIM HORMONE Collected: 08/15/2017 Status: F Source: [place] (TSH) 11:20 AM [facility] REPOSITORY TYPE CODE TESTS RESULT OUT OF RANGE REFERENCE UNITS LAB L501.9520 0.358-3.74 uIU/mL Normal TSH 1.91 Performed By: #### L500.4050, L500.4100, L501.9520, L506.0400 #### [facility] [address] [facility] [place], [address] T4 FREE DIRECT Collected: 08/15/2017 Status: F Source: [place] 11:20 AM [facility] REPOSITORY TYPE CODE TESTS RESULT OUT OF RANGE REFERENCE UNITS LAB L506.0400 0.76-1.46 ng/dL Normal T4 FREE 0.99 DIRECT Performed By: #### L500.4050, L500.4100, L501.9520, L506.0400 #### [facility] [address] [facility] [place], [address] ALLERGIES ALLERGIES DATE TYPE / CODE NAME / CODE REACTION SEVERITY SOURCE 05/23/2018 Drug No Known Unknown [facility] Allergy/4160 Allergies/F00 [facility] 20555(SNOMED 7377208(RXNOR Repository CT) M) ENCOUNTERS ENCOUNTERS ADMIT/DISCHARGE ACCOUNT ADMITTING ENCOUNTER LOCATION SOURCE NUMBER CLASS 05/23/2018 [id number] Ambulatory [place] 8 [facility] ing:HPRAD Repository 05/23/2018/ [id number] Ambulatory BMS[facility]:[place] 9 3 [place] [facility] Repository 03/26/2018 [id number] Ambulatory [facility] 3 [facility] ing:LABSPEC Repository 03/26/2018/ [id number] Ambulatory BMSBuilding:[place] 8 2 [place] [facility] Repository 03/10/2018 [id number] Ambulatory BMSBuilding:[place] 9 [place] [facility] Repository 03/06/2018/ [id number] Ambulatory BMSBuilding:[place] 8 4 [place].S[place] [facility] Repository 03/04/2018/ [id number] Ambulatory BMSBuilding:[place] 8 8 [place] [facility] Repository 02/24/2018/ [id number] Emergency [place] 8 3 [facility] ing:ED Repository 02/14/2018/ [id number] Ambulatory BMSBuilding:[place] 8 8 [place] Repository 02/11/2018 [id number] Ambulatory [place] 9 [facility] ing:MRI Repository 02/10/2018 [id number] Ambulatory [place] 9 [facility] ing:HPRAD Repository 02/04/2018 [id number] Ambulatory BMSBuilding:[place] 5 [place] Repository 01/29/2018/ [id number] Ambulatory BMSBuilding:[place] 8 6 [facility] Repository 01/17/2018 [id number] Ambulatory [place] 2 [facility] ing:SL Repository 01/15/2018/ [id number] Ambulatory [place] 8 7 [facility] ing:PT Repository 01/13/2018 [id number] Ambulatory BMSBuilding:B [place] 9 [facility] Repository 01/10/2018/ [id number] Ambulatory BMSBuilding:[place] 8 3 [place] [facility] Repository 01/08/2018 [id number] Ambulatory BMSBuilding:[place] 9 [facility] Repository 01/01/2018 [id number] Ambulatory [place] 8 [facility] ing:SL Repository 12/11/2017 [id number] Ambulatory [place] 0 [facility] ing:LAB Repository 12/09/2017/ [id number] Ambulatory BMSBuilding:B [place] 8 6 [facility] Repository 10/11/2017/ [id number] Ambulatory [facility]MSBuilding:[place] 8 0 [place] [place] 09/09/2017 [id number] Ambulatory [place] 0 [facility] ing:OPBI Repository 08/15/2017 [id number] Ambulatory [place] 7 [facility] ing:LAB Repository PAYERS PAYERS ENCOUNTER GUARANTOR PAYER SUBSCRIBER SOURCE 05/23/2018 MERCED [place]ris [place] [id number] Insurance:[facility]: [facility] Number: [id number] [id number] Repository [address]Zpd: (330) Date:7256-65-95TC [phone] (HP) [place] [address]NB: 05/23/2018 Secondary NOT GIVENUNK [place] Insurance:SELF PAY [facility] Number: Effective Repository Date:2018-05-23 05/23/2018 MERCED Burris [place] [id number] Insurance:[facility]: [facility] Number: [id number], [place] [id number] Repository [address]Ecs: (330) Date:0407-49-24DB [phone] (HP) [place] [address]JL: 05/23/2018 Secondary NOT GIVENUNK [place] Insurance:SELF PAY [facility] Number: Effective Repository Date:2018-05-22 03/26/2018 MERCED Burris [place] [id number] Insurance[facility]: [facility] Number: [id number], [place] [id number] Repository [address]Jhz: (330) Date:0693-68-91WG [phone] (HP) [address] [address]RZ: 03/26/2018 Secondary NOT GIVENUNK [place] Insurance:SELF PAY [facility] Number: Effective Repository Date:2018-03-26 03/26/2018 MERCED Burris [place] [id number] Insurance:SUMMA HUDSPITHDOB[facility] Number: [id number], [place] [id number] Repository [address]Upx: (330) Date:9288-65-08UW [phone] (HP) [address] [address]GI: 03/26/2018 Secondary NOT GIVENUNK [place] Insurance:SELF PAY [facility] Number: Effective Repository Date:2018-03-26 03/10/2018 MERCED Burris [place] [id number] Insurance:SUMMA HUDSPITHDOB: [facility] Number: [id number], [place] [id number] Repository [address]Npt: (330) Date:8509-16-13KM [phone] (HP) [address] [address]UW: 03/10/2018 Secondary NOT GIVENUNK [place] Insurance:SELF PAY [facility] Number: Effective Repository Date:2018-03-10 03/06/2018 MERCED Burris [place] [id number] Insurance:SUMMA HUDSPITHDOB: [facility] Number: [id number], [place] [id number] Repository [address]Frw: (330) Date:8467-42-66LH [phone] (HP) [address] [place] [address]GF: 03/06/2018 Secondary NOT GIVENUNK [place] Insurance:SELF PAY [facility] Number: Effective Repository Date:2018-03-06 03/04/2018 MERCED Burris [place] [id number] Insurance:SUMMA HUDSPITHDOB: [facility] Number: [id number], [place] [id number] Repository [address]Cxl: (330) Date:6086-97-65WN [phone] (HP) [address] [address]QK: 03/04/2018 Secondary NOT GIVENUNK [place] Insurance:SELF PAY [facility]: Effective Repository Date:2018-03-04 02/24/2018 MERCED Burris Primary [place] [id number] Insurance:SUMMA HUDSPITHDOB[facility] Number: [id number], [place] [id number] Repository [address]Bng: (330) Date:1707-25-46PZ [phone] () [address] [address]GT: 02/24/2018 Secondary NOT GIVENUNK [place] Insurance:SELF PAY [facility] Number: Effective Repository Date:2018-02-24 02/14/2018 MERCED Burris [facility] KARTHIK Carvalho [place] [id number] Insurance:SUMMA HUDSPITHDOB: [facility] Number: [id number], [place] [id number] Repository [address]Qsp: (330) Date:2340-09-86RC [phone] () [address] [address]VA: 02/14/2018 Secondary NOT GIVENUNK [place] Insurance:SELF PAY [facility] Number: Effective Repository Date:2018-02-14 02/11/2018 MERCED [place] [id number] Insurance:SUMMA HUDSPITHDOB: [facility] Number: [id number], [place] [id number] Repository 267[address]Jum: [phone]) Date:8400-04-89XP [phone] () [place] [address]MI: 02/11/2018 Secondary NOT GIVENUNK [place] Insurance:SELF PAY [facility] Number: Effective Repository Date:2018-01-29 02/10/2018 MERCED Burris Primary [place] [id number] Insurance:[place] HUDSPITHDOB: [facility] Number: [id number], [place] [id number] Repository [address]Vsh: ([phone]) Date:6113-59-61ZV [address] (HP) [place], [place] [address]YB: 02/10/2018 Secondary NOT GIVENUNK [place] Insurance:SELF PAY [facility] Number: Effective Repository Date:2018-02-10 02/04/2018 MERCED Burris Primary [place] [id number] [facility] HUDSPITHDOB[facility] Number: [id number], [place] [id number] Repository 12[address]Kqe: ([phone]) Date:8200-42-63EI [phone] () [address]20[place], [place] [address]JD: 02/04/2018 Secondary NOT GIVENUNK [place] Insurance:SELF PAY [facility] Number: Effective Repository Date:2018-02-04 01/29/2018 MERCED M Primary [place] [id number] [facility] CARE [id number], [place] Number: Repository [address]Ecc: 330 [id number] [phone] () Date:8265-89-16IN [address]VCJULKW, [place] [address]LL: 01/29/2018 Secondary NOT GIVENUNK [place] Insurance:SELF PAY [facility] Number: Effective Repository Date:2018-01-29 01/17/2018 MERCED M Primary [place] [id number] [facility] CARE [id number] Number: Repository [address]Cxr: 330 [id number] [phone] () Date:6258-94-58FD [address]UNFPS[place], [place] [address]FC: 01/17/2018 Secondary NOT GIVENUNK [place] Insurance:SELF PAY [facility] Number: Effective Repository Date:2018-01-15 01/15/2018 MERCED Burris Primary [place] [id number] Insurance:UNITED TH HUDSPITHDOB: [facility] CARE [id number] [id number], [place] Number: Repository [id number]: 330 [id number] [phone] () Date:6511-54-24DR [address]QAGSVSV, [place] [address]DF: 01/15/2018 Secondary NOT GIVENUNK [place] Insurance:SELF PAY [facility] Number: Effective Repository Date:2017-12-12 01/13/2018 MERCED Burris Primary [place] [id number] Insurance:[facility] HUDSPITHDOB: [facility] CARE [id number] [id number] [facility] [place] Number: Repository [address]Nsm: 330 [id number] [phone] () Date:9082-96-15MI [address]HRZNYLA, [place] [address]DV: 01/13/2018 Secondary NOT GIVENUNK [place] Insurance:SELF PAY [facility] Number: Effective Repository Date:2017-12-09 01/10/2018 MERCED Burris Primary NOT GIVENUNK [place] [id number] Insurance:SELF PAY [facility] [place] Number: Effective Repository [address]Dcr: (330) Date:2018-01-10 [phone] () 01/08/2018 MERCED Burris Primary [place] [id number] Insurance:[facility] HUDSPITHDOB: [facility] [id number] [facility] [place] Number: Repository [address]Ben: 330 [id number] [phone] () Date:3574-51-86VP [address]BTWMQLO, [place] [address]LL: 01/08/2018 Secondary NOT GIVENUNK [place] Insurance:SELF PAY [facility] Number: Effective Repository Date:2017-12-19 01/01/2018 MERCED Burris Primary [place] [id number] Insurance:UNITED TH HUDSPITHDOB: [facility] [id number] Number: Repository [address]Myy: 330 [id number] [phone] () Date:5156-60-12UZ [address]B[place]AG[place], [place] [address]XF: 01/01/2018 Secondary NOT GIVENUNK [place] Insurance:SELF PAY [facility] Number: Effective Repository Date:2017-11-07 12/11/2017 MERCED Burris Primary [place] [id number] Insurance:[facility] HUDSPITHDOB: [facility] [id number] [place] Number: Repository [address]Lwh: 330 [id number] [phone] () Date:1441-37-77YR [address]BF[place], [place] [address]ET: 12/11/2017 Secondary NOT GIVENUNK [place] Insurance:SELF PAY [facility] Number: Effective Repository Date:2017-12-11 12/09/2017 MERCED Burris Primary [place] [id number] Insurance:[facility] HUDSPITHDOB: [facility] [id number] [place] Number: Repository [address]Qwx: 330 [id number] [phone] () Date:3264-29-70SN [address]KWUBNSO, [place] [address]NU: 12/09/2017 Secondary NOT GIVENUNK [place] Insurance:SELF PAY [facility] Number: Effective Repository Date:2017-10-31 10/11/2017 MERCED Burris Primary [place] [id number] Insurance:[facility] HUDSPITHDOB: [facility] [id number] [place] Number: Repository [address]Tsl: 330 [id number] [phone] (HP) Date:8611-13-42MT [facility] [address] [place] [address]EL: 10/11/2017 Secondary NOT GIVENUNK [place] Insurance:SELF PAY [facility] Number: Effective Repository Date:2017-10-18 09/09/2017 MERCED Burris Primary [place] [id number] [facility] [id number] [facility] [place] Number: Repository [address]Xiz: 330 [id number] [phone] (HP) Date:6396-44-47HG [facility] 418011DVXEGWN, [place] [address]CZ: 09/09/2017 Secondary NOT GIVENUNK [place] Insurance:SELF PAY [facility] Number: Effective Repository Date:2017-08-05 08/15/2017 MERCED Primary [place] [id number] [facility] [id number], [place] Number: Repository [address]Sqs: 330 [id number] [phone] (HP) Date:0061-08-96ZF [address]EDYYAQZ, [place] [address]AW: 08/15/2017 Secondary NOT GIVENUNK [place] Insurance:SELF PAY [facility] Number: Effective Repository Date:2017-08-15
== END ==
PROVIDERS: Family Provider Internal Medicine; PCP Internal Medicine; Referring Provider Orthopaedic Surgery; Visit Provider Orthopaedic Surgery
DX: M54.12 Radiculopathy, cervical region (principal)
CPT/HCPCS: 72040

== ENCOUNTER → 2018-06-03 13:05 | Outpatient (CLI) | payer OTHER, SELFPAY ==
[2018-05-23 09:03] VITALS: BMI 34.2
--- NOTE | 2018-06-03 13:45 | MRI_ITS ---
STUDY: MRI LEFT SHOULDER REASON FOR EXAM: Female, 47 years old. Left shoulder calcific tendinitis. Pain. Decreased range of motion. TECHNIQUE: Standardized fat and water weighted pulse sequences were obtained in all 3 orthogonal planes. COMPARISON: X-ray February 10, 2018. FINDINGS: Tendinosis of the supraspinatus with partial humeral surface distal tendon tear, series 6 images 03/25 and 04/24. Normal infraspinatus tendon. Normal subscapularis tendon. Normal teres minor tendon. Normal supraspinatus muscle. Normal infraspinatus muscle. Normal subscapularis muscle. Normal teres minor muscle. There is a small volume joint effusion of the glenohumeral joint. Normal humeral head and visualized proximal humerus. Normal biceps labral complex. Normal intracapsular long biceps tendon. Normal labrum. Normal capsulo- ligamentous complex. Normal rotator interval. Normal acromioclavicular articulation. There is a Type II morphology (curved) acromion, with a neutral orientation. There is no subacromial-subdeltoid bursal fluid. Normal visualized coracohumeral and coracoacromial ligaments. Normal quadrilateral space. Normal axillary space. Normal deltoid muscle. Normal trapezius muscle. MRI/Upper Ext Joint Only(Routine) IMPRESSION: Tendinosis with partial tearing of the distal supraspinatus. No full-thickness rotator cuff tear. Electronically Signed: Robson Evans MD at 15:23 EST , Service support ,
== END ==
LOC: MRI 13:06
PROVIDERS: Family Provider Internal Medicine; PCP Internal Medicine; Referring Provider Orthopaedic Surgery; Visit Provider Orthopaedic Surgery
DX: M65.222 Calcific tendinitis, left upper arm (principal)
CPT/HCPCS: 73221

== ENCOUNTER → 2018-08-08 11:36 | Outpatient (CLI) | payer OTHER, SELFPAY ==
[2018-08-08 11:07] VITALS: BMI 34.9
[2018-08-08 14:24] LABS: Anion Gap 6 (5-15); BUN 11 mg/dL (7-18); BUN/Creat Ratio 13.8 RATIO (10-20); Calcium,Total 8.9 mg/dL (8.5-10.1); Chloride 102 mmol/L (98-107); EST Glomerular Filtration Rate 81 mL/min (>60); Est Glom Filt Rate - Afr Amer 98 mL/min (>60); Glucose 336 mg/dL (74-106); Magnesium 1.9 mg/dL (1.6-2.6); Potassium 4.1 mmol/L (3.5-5.1); Sodium Level 135 mmol/L (136-145)
== END ==
PROVIDERS: Family Provider Internal Medicine; PCP Internal Medicine; Visit Provider Internal Medicine
DX: E11.9 Type 2 diabetes mellitus without complications (principal); R25.2 Cramp and spasm
CPT/HCPCS: 36415; 80048; 83735

== ENCOUNTER → 2018-10-23 | Outpatient (CLI) | payer OTHER, SELFPAY ==
[2018-09-23 12:16] VITALS: BMI 34.9
--- NOTE | 2018-10-23 12:29 | BI_ITS ---
MAMMOGRAPHY - BILATERAL SCREENING REASON FOR EXAM: Female, 48 years old. Routine annual screening examination. PERTINENT HISTORY: Aunt with breast cancer. TECHNIQUE: Digital bilateral breast ministerio (3D mammographic acquisition) in the CC and MLO projections. 2-D mediolateral oblique (MLO) and craniocaudad (CC) views of both breasts were obtained. CAD: Full Field Digital Mammography with Computer Added Detection was performed. COMPARISON: Comparison is made with prior study dated September 09, 2017 and September 07, 2016. FINDINGS: Breast Composition: The breasts are almost entirely fatty. There are no dominant masses or suspicious calcifications. Stable small benign-appearing bilateral axillary. No other significant abnormalities are identified. There has been no significant change since the prior study. BI/SCREEN MAMM (CAD) W/MINISTERIO BILAT IMPRESSION: Stable bilateral screening mammogram. Yearly follow-up mammogram recommended. (A) ASSESSMENT CATEGORY: BIRADS Category 2: Benign. A letter regarding these results will be sent to the patient by the facility within 30 days. Approximately 10% of breast cancers are not detected by mammography. A normal mammogram should not delay biopsy of a clinically suspicious abnormality. [id number] Electronically Signed: Angel Day, at 14:47 EDT , Service support ,
== END | disposition home or self-care (01) ==
LOC: OPBI 12:27
PROVIDERS: Family Provider Internal Medicine; PCP Internal Medicine; Referring Provider Obstetrics & Gynecology; Visit Provider Obstetrics & Gynecology
DX: Z12.31 Encounter for screening mammogram for malignant neoplasm of breast (principal)
CPT/HCPCS: 77063; 77067

== ENCOUNTER → 2018-11-25 | Outpatient (CLI) | payer OTHER, SELFPAY ==
[2018-11-25 08:11] VITALS: BMI 34.9
[2018-11-25 12:40] LABS: AST(SGOT) 8 U/L (15-37); Alanine Aminotransfer ALT/SGPT 16 U/L (13-56); Albumin, Serum 3.5 g/dL (3.2-5.0); Alkaline Phosphatase 66 U/L (45-117); Anion Gap 3 (5-15); BUN 10 mg/dL (7-18); BUN/Creat Ratio 12.7 RATIO (10-20); Calcium,Total 8.9 mg/dL (8.5-10.1); Chloride 101 mmol/L (98-107); Cholesterol 138 mg/dL (200); Creatinine, Serum 0.79 mg/dL (0.55-1.02); EST Glomerular Filtration Rate 82 mL/min (>60); Est Glom Filt Rate - Afr Amer 100 mL/min (>60); Globulin 3.4 g/dL (2.2-4.2); Glucose 306 mg/dL (74-106); High Density Lipoprotein 47 mg/dL; Potassium 3.9 mmol/L (3.5-5.1); Protein, Total 6.9 g/dL (6.4-8.2); Sodium Level 134 mmol/L (136-145); Triglycerides 196 mg/dL; Very Low Density Lipoprotein 39 mg/dL (5-40)
[2018-11-25 13:46] LABS: Microalbumin,Random Urine 9.8 mg/L (NO RANGE EST.); Microalbumin:Creatinine Ratio 4.9 mg/g CRE (<30 mg/g CRE)
== END | disposition home or self-care (01) ==
PROVIDERS: PCP Internal Medicine; Visit Provider Internal Medicine
DX: E11.9 Type 2 diabetes mellitus without complications (principal)
CPT/HCPCS: 36415; 80053; 80061; 82043; 82570

== ENCOUNTER → 2019-11-25 14:09 | Outpatient (CLI) | payer OTHER, SELFPAY ==
[2019-11-25 13:43] VITALS: BMI 34.9
[2019-11-25 15:05] LABS: Absolute Lymphocyte Count 2.28 X10^3/uL (0.83-4.51); Absolute Neutrophil Count 5.8 X10^3/uL (2.0-7.7); Basophil# 0.03 X10^3/uL; Basophil% 0.4 % (0-1); Eosinophil# 0.02 X10^3/uL; Eosinophils% 0.2 % (0-5); Hematocrit 42.9 % (37-47); Hemoglobin 14.3 g/dL (12.0-15.0); Lymphocyte # 2.28 X10^3/ul (4.0); Lymphocyte % 26.7 % (19-41); Mean Corp Hgb Conc 33.3 g/dL (32-36); Mean Corpuscular Hgb 29.9 pg (27.0-32.0); Mean Corpuscular Volume 89.7 fL (81-99); Mean Platelet Vol. 9.8 fl (6.2-12.0); Monocyte# 0.38 X10^3/uL; Monocyte% 4.4 % (0-10); NRBC Flagged by Analyzer 0 % (0-5); Neutrophil # 5.81 X10^3/uL (2.7-7.7); Neutrophil % 68.1 % (47-70); Platelet Count 378 K/mm3 (150-450); RBC Distribution Width CV 12.4 % (11.6-14.6); RBC Distribution Width SD 40.7 fl (35.1-43.9); Red Blood Count 4.78 M/mm3 (4.2-5.4); White Blood Count 8.5 K/mm3 (4.4-11.0)
[2019-11-25 15:40] LABS: Microalbumin,Random Urine 10.1 mg/L (NO RANGE EST.); Microalbumin:Creatinine Ratio 4.7 mg/g CRE (<30 mg/g CRE)
[2019-11-25 15:55] LABS: AST(SGOT) 10 U/L (15-37); Alanine Aminotransfer ALT/SGPT 16 U/L (13-56); Albumin, Serum 3.5 g/dL (3.2-5.0); Alkaline Phosphatase 70 U/L (45-117); Anion Gap 4 (5-15); BUN 12 mg/dL (7-18); BUN/Creat Ratio 14.4 RATIO (10-20); Calcium,Total 8.9 mg/dL (8.5-10.1); Chloride 105 mmol/L (98-107); Cholesterol 193 mg/dL (200); Creatinine, Serum 0.83 mg/dL (0.55-1.02); EST Glomerular Filtration Rate 77 mL/min (>60); Est Glom Filt Rate - Afr Amer 93 mL/min (>60); Globulin 3.6 g/dL (2.2-4.2); Glucose 278 mg/dL (74-106); High Density Lipoprotein 40 mg/dL; Potassium 3.8 mmol/L (3.5-5.1); Protein, Total 7.1 g/dL (6.4-8.2); Sodium Level 138 mmol/L (136-145); Triglycerides 411 mg/dL
== END ==
PROVIDERS: PCP Internal Medicine; Referring Provider Internal Medicine; Visit Provider Internal Medicine
DX: E11.9 Type 2 diabetes mellitus without complications (principal); F41.8 Other specified anxiety disorders
CPT/HCPCS: 36415; 80053; 80061; 82043; 82570; 83036; 85025

== ENCOUNTER → 2019-12-28 12:10 | Outpatient (CLI) | payer OTHER, SELFPAY ==
[2019-12-28 08:39] VITALS: BMI 34.9
== END ==
PROVIDERS: PCP Internal Medicine; Referring Provider Surgery; Visit Provider Surgery
DX: L02.91 Cutaneous abscess, unspecified (principal)
CPT/HCPCS: 87070; 87075; 87077; 87186; 87205

== ENCOUNTER → 2020-01-19 14:21 | Outpatient (CLI) | payer OTHER, SELFPAY ==
[2019-12-15 15:08] VITALS: BMI 36.1
[2020-01-07 13:27] VITALS: BMI 34.9
--- NOTE | 2020-01-19 14:21 | BI_ITS ---
MAMMOGRAPHY - BILATERAL SCREENING REASON FOR EXAM: Female, 49 years old. Routine annual screening examination. PERTINENT HISTORY: Aunt with breast cancer. TECHNIQUE: Digital bilateral breast ministerio (3D mammographic acquisition) in the CC and MLO projections. 2-D mediolateral oblique (MLO) and craniocaudad (CC) views of both breasts were obtained. CAD: Full Field Digital Mammography with Computer Added Detection was performed. COMPARISON: Comparison is made with prior study dated 10/23/2018 and 09/09/2017. FINDINGS: Breast Composition: The breasts are almost entirely fatty. There are no dominant masses or suspicious calcifications. No other significant abnormalities are identified. There has been no significant change since the prior study. BI/SCREEN MAMM (CAD) W/MINISTERIO BILAT IMPRESSION: Stable bilateral screening mammogram. Yearly follow-up mammogram recommended. (A) ASSESSMENT CATEGORY: BIRADS Category 1: Negative. A letter regarding these results will be sent to the patient by the facility within 30 days. Approximately 10% of breast cancers are not detected by mammography. A normal mammogram should not delay biopsy of a clinically suspicious abnormality. [id number] Electronically Signed: Angel Day, at 8:21 EDT , Service support ,
== END ==
PROVIDERS: PCP Internal Medicine; Referring Provider Nurse Practitioner Family; Visit Provider Nurse Practitioner Family
DX: Z12.31 Encounter for screening mammogram for malignant neoplasm of breast (principal)
CPT/HCPCS: 77063; 77067

== ENCOUNTER → 2020-02-05 11:10 | Outpatient (CLI) | payer OTHER, SELFPAY ==
[2019-12-28 08:39] VITALS: BMI 34.9
== END ==
PROVIDERS: Anesthesiology; PCP Internal Medicine; Referring Provider Internal Medicine; Visit Provider Surgery
DX: Z20.828 Contact with and (suspected) exposure to other viral communicable diseases (principal)
CPT/HCPCS: 87635; C9803; U0003

== ENCOUNTER → 2020-08-23 11:16 | Outpatient (CLI) | payer OTHER, SELFPAY ==
[2020-08-18 15:19] VITALS: BMI 34.9
--- NOTE | 2020-08-23 11:21 | US_ITS ---
STUDY: SUPERFICIAL ULTRASOUND - RIGHT THIGH REASON FOR EXAM: Female, 50 years old. Right Thigh Swelling TECHNIQUE: A superficial ultrasound was performed with real-time and static sanchez-scale imaging. COMPARISON: None. FINDINGS: Multiple longitudinal and transverse ultrasound images of the right thigh failed to demonstrate a discrete solid or cystic mass or lymphadenopathy. Some prominent subcutaneous fat. US/Ext Non Vasc Limited/Soft Tiss IMPRESSION: Normal ultrasound of the right thigh. If lipoma is of concern, MRI with contrast may be useful, Electronically Signed: Ash Doty MD at 13:32 EDT Tel , Service support ,
== END ==
LOC: US 11:16
PROVIDERS: PCP Internal Medicine; Referring Provider Internal Medicine; Visit Provider Internal Medicine
DX: M79.89 Other specified soft tissue disorders (principal)
CPT/HCPCS: 76882

== ENCOUNTER → 2020-11-17 14:26 | Outpatient (CLI) | payer OTHER, SELFPAY ==
[2020-11-17 14:00] VITALS: BMI 34.9
[2020-11-17 15:13] LABS: Absolute Lymphocyte Count 2.73 X10^3/uL (0.83-4.51); Absolute Neutrophil Count 6.4 X10^3/uL (2.0-7.7); Basophil# 0.01 X10^3/uL; Basophil% 0.1 % (0-1); Eosinophil# 0.01 X10^3/uL; Eosinophils% 0.1 % (0-5); Hemoglobin 13.7 g/dL (12.0-15.0); Lymphocyte # 2.73 X10^3/ul (0.83-4.51); Lymphocyte % 28.4 % (19-41); Mean Corp Hgb Conc 32.6 g/dL (32-36); Mean Platelet Vol. 9.2 fl (6.2-12.0); Monocyte# 0.43 X10^3/uL; Monocyte% 4.5 % (0-10); NRBC Flagged by Analyzer 0 % (0-5); Neutrophil # 6.41 X10^3/uL (2.7-7.7); Neutrophil % 66.7 % (47-70); Platelet Count 383 K/mm3 (150-450); RBC Distribution Width CV 12.7 % (11.6-14.6); RBC Distribution Width SD 41.6 fl (35.1-43.9); Red Blood Count 4.72 M/mm3 (4.2-5.4); White Blood Count 9.6 K/mm3 (4.4-11.0)
[2020-11-17 15:42] LABS: Hemoglobin A1c 6.8 % (3.8-5.6)
[2020-11-17 15:57] LABS: AST(SGOT) 17 U/L (15-37); Alanine Aminotransfer ALT/SGPT 27 U/L (13-56); Albumin, Serum 3.6 g/dL (3.2-5.0); Alkaline Phosphatase 80 U/L (45-117); Anion Gap 5 (5-15); BUN 13 mg/dL (7-18); BUN/Creat Ratio 14.5 RATIO (10-20); Calcium,Total 9.1 mg/dL (8.5-10.1); Chloride 106 mmol/L (98-107); Cholesterol 130 mg/dL (200); Creatinine, Serum 0.89 mg/dL (0.55-1.02); EST Glomerular Filtration Rate 71 mL/min (>60); Est Glom Filt Rate - Afr Amer 85 mL/min (>60); Globulin 3.6 g/dL (2.2-4.2); Glucose 145 mg/dL (74-106); High Density Lipoprotein 53 mg/dL; Potassium 3.5 mmol/L (3.5-5.1); Protein, Total 7.2 g/dL (6.4-8.2); Sodium Level 139 mmol/L (136-145); Triglycerides 142 mg/dL; Very Low Density Lipoprotein 28 mg/dL (5-40)
[2020-11-17 20:03] LABS: Microalbumin,Random Urine 14.1 mg/L (NO RANGE EST.); Microalbumin:Creatinine Ratio 4.7 mg/g CRE (<30 mg/g CRE)
== END ==
LOC: BIMLAB 14:27
PROVIDERS: PCP Internal Medicine; Referring Provider Internal Medicine; Visit Provider Internal Medicine
DX: E11.9 Type 2 diabetes mellitus without complications (principal); I10 Essential (primary) hypertension
CPT/HCPCS: 36415; 80053; 80061; 82043; 82570; 83036; 85025

== ENCOUNTER → 2021-01-24 15:08 | Outpatient (CLI) | payer OTHER, SELFPAY ==
[2020-11-17 14:00] VITALS: BMI 34.9
[2020-11-24 15:53] VITALS: BMI 34.9
--- NOTE | 2021-01-24 15:15 | BI_ITS ---
MAMMOGRAPHY - BILATERAL SCREENING REASON FOR EXAM: Female, 50 years old. Routine annual screening examination. PERTINENT HISTORY: Aunt with breast cancer. TECHNIQUE: Digital bilateral breast ministerio (3D mammographic acquisition) in the CC and MLO projections. 2-D mediolateral oblique (MLO) and craniocaudad (CC) views of both breasts were obtained. CAD: Full Field Digital Mammography with Computer Added Detection was performed. COMPARISON: Comparison is made with prior study dated 01/19/2020 and 10/23/2018. FINDINGS: Breast Composition: The breasts are almost entirely fatty. There are no dominant masses or suspicious calcifications. Stable small benign-appearing bilateral No other significant abnormalities are identified. There has been no significant change since the prior study. BI/SCRN MAMM (CAD)W/MINISTERIO BILAT IMPRESSION: Stable bilateral screening mammogram. Yearly follow-up mammogram recommended. (A) ASSESSMENT CATEGORY: BIRADS Category 2: Benign. A letter regarding these results will be sent to the patient by the facility within 30 days. Approximately 10% of breast cancers are not detected by mammography. A normal mammogram should not delay biopsy of a clinically suspicious abnormality. [id number] Electronically Signed: Angel Day MD at 8:26 EDT , Service support ,
== END ==
PROVIDERS: PCP Internal Medicine; Referring Provider Internal Medicine; Visit Provider Nurse Practitioner Family
DX: Z12.31 Encounter for screening mammogram for malignant neoplasm of breast (principal)
CPT/HCPCS: 77063; 77067

== ENCOUNTER → 2021-03-20 14:14 | Outpatient (CLI) | payer OTHER, SELFPAY ==
[2021-03-20 14:16] LABS: Bacteria 0 SEEN /hpf (None Seen); Mucous, Urine 0 SEEN /hpf (<or=2+); Red Blood Cells-Urine 0 SEEN /hpf (0-5)
[2021-03-20 15:02] LABS: Color, Urine Yellow (Yellow); Glucose, Dipstick Normal (Normal); Ketone-Dipstick 5 mg/dl (Negative); Leukocyte Esterase-Dipstick 25 /ul (Negative); Nitrite-Dipstick Negative (Negative); Occult Blood-Urine 10 /ul (Negative); Protein-Dipstick Negative (Negative); Specific Gravity, Urine 1.015 (1.002-1.030); Urine Bilirubin Dipstick Negative (Negative); Urine Clarity Sl. Cloudy (Clear); Urine Urobilinogen Normal (Normal)
[2021-03-20 15:10] LABS: Squamous Epithelial Cells - UA 0-5 SEEN /hpf (5-10); White Blood Cells 5-10 SEEN /hpf (0-5)
== END ==
PROVIDERS: PCP Internal Medicine; Referring Provider Physician Assistant; Visit Provider Physician Assistant
DX: N39.0 Urinary tract infection, site not specified (principal)
CPT/HCPCS: 81001; 87086; 87088

== ENCOUNTER 2021-06-19 14:47 | Outpatient (CLI) | payer OTHER, SELFPAY ==
[2021-06-19 16:56] LABS: ALB/GLOB Ratio 0.9 RATIO (0.9-2.4); AST(SGOT) 16 U/L (15-37); Alanine Aminotransfer ALT/SGPT 27 U/L (13-56); Albumin, Serum 3.5 g/dL (3.2-5.0); Alkaline Phosphatase 75 U/L (45-117); Anion Gap 4 (5-15); BUN 13 mg/dL (7-18); BUN/Creat Ratio 13.8 RATIO (10-20); Calcium,Total 9.3 mg/dL (8.5-10.1); Chloride 105 mmol/L (98-107); Creatinine, Serum 0.94 mg/dL (0.55-1.02); EST Glomerular Filtration Rate 66 mL/min (>60); Est Glom Filt Rate - Afr Amer 80 mL/min (>60); Globulin 3.7 g/dL (2.2-4.2); Glucose 260 mg/dL (74-106); Potassium 4.4 mmol/L (3.5-5.1); Protein, Total 7.2 g/dL (6.4-8.2); Sodium Level 136 mmol/L (136-145)
[2021-06-19 17:18] LABS: Amphetamine Urine VISTA NEGATIVE (<1000 ng/mL); Barbiturate Urine VISTA NEGATIVE (< 200 ng/mL); Benzodiazepine Urine VISTA NEGATIVE (< 200 ng/mL); Cocaine Urine VISTA NEGATIVE (< 300 ng/mL); Ecstacy Urine VISTA NEGATIVE (< 500 ng/mL); Methadone Urine VISTA NEGATIVE (< 300 ng/mL); PCP Urine VISTA NEGATIVE (< 25 ng/mL); THC Urine VISTA NEGATIVE (< 50 ng/mL); Vista UDS pH Range 4
== END 2021-06-19 23:59 | disposition home or self-care (01) ==
LOC: BIMLAB 14:48
PROVIDERS: PCP Internal Medicine; Referring Provider Internal Medicine; Visit Provider Internal Medicine
DX: E11.9 Type 2 diabetes mellitus without complications (principal); Z79.4 Long term (current) use of insulin; I10 Essential (primary) hypertension; M25.511 Pain in right shoulder; M25.512 Pain in left shoulder; M75.31 Calcific tendinitis of right shoulder; M75.32 Calcific tendinitis of left shoulder
CPT/HCPCS: 36415; 80053; 80307

== ENCOUNTER → 2022-01-18 | Outpatient (CLI) | payer OTHER, SELFPAY ==
--- NOTE | 2022-01-18 09:51 | EKG12_ITS ---
Test Reason : PREOP Blood Pressure : / mmHG Vent. Rate : 078 BPM Atrial Rate : 078 BPM P-R Int : 162 ms QRS Dur : 076 ms QT Int : 382 ms P-R-T Axes : 056 -12 058 degrees QTc Int : 435 ms Normal sinus rhythm Low voltage QRS Borderline ECG Confirmed by JANAE GARNER, MACKENZIE ([id number]), publications editor NILDA URRUTIA ([id number]) on 01/19/2022 10:11:39 AM Referred By: Mack Barros Confirmed By:MACKENZIE CARDOSO MD
[2022-01-18 10:49] LABS: Hematocrit 39.1 % (37-47); Hemoglobin 13.3 g/dL (12.0-15.0); Mean Corpuscular Volume 88.3 fL (81-99); Mean Platelet Vol. 9.6 fl (6.2-12.0); Platelet Count 311 K/mm3 (150-450); RBC Distribution Width CV 12.3 % (11.6-14.6); RBC Distribution Width SD 39.8 fl (35.1-43.9); Red Blood Count 4.43 M/mm3 (4.2-5.4); White Blood Count 5.9 K/mm3 (4.4-11.0)
[2022-01-18 11:19] LABS: Anion Gap 6 (5-15); BUN 15 mg/dL (7-18); BUN/Creat Ratio 22.1 RATIO (10-20); Calcium,Total 8.9 mg/dL (8.5-10.1); Chloride 105 mmol/L (98-107); Creatinine, Serum 0.68 mg/dL (0.55-1.02); EST Glomerular Filtration Rate 97 mL/min (>60); Est Glom Filt Rate - Afr Amer 117 mL/min (>60); Glucose 233 mg/dL (74-106); Sodium Level 138 mmol/L (136-145)
[2022-01-18 11:26] LABS: Hemoglobin A1c 9.1 % (3.8-5.6)
== END | disposition home or self-care (01) ==
PROVIDERS: PCP Internal Medicine; Referring Provider Orthopaedic Surgery; Visit Provider Orthopaedic Surgery
DX: Z01.810 Encounter for preprocedural cardiovascular examination (principal)
CPT/HCPCS: 36415; 80048; 83036; 85027; 93005

== ENCOUNTER → 2022-02-16 | Outpatient (CLI) | payer OTHER, SELFPAY ==
--- NOTE | 2022-02-16 10:52 | BI_ITS ---
MAMMOGRAPHY - BILATERAL SCREENING REASON FOR EXAM: Female, 51 years old. Routine annual screening examination. PERTINENT HISTORY: Aunt with breast cancer. TECHNIQUE: Digital bilateral breast ministerio (3D mammographic acquisition) in the CC and MLO projections. 2-D mediolateral oblique (MLO) and craniocaudad (CC) views of both breasts were obtained. CAD: Full Field Digital Mammography with Computer Added Detection was performed. COMPARISON: Comparison is made with prior examination of 01/24/2021 and 01/19/2020. FINDINGS: Breast Composition: The breasts are almost entirely fatty. There are no dominant masses or suspicious calcifications. Stable small fat-containing nodules in the anterior upper outer quadrant of the left breast incomplete small lymph nodes. Stable fat-containing bilateral axillary lymph nodes. No other significant abnormalities are identified. There has been no significant change since the prior study. BI/SCRN MAMM (CAD)W/MINISTERIO BILAT IMPRESSION: Stable bilateral screening mammogram. Yearly follow-up mammogram recommended. (A) ASSESSMENT CATEGORY: BIRADS Category 2: Benign. A letter regarding these results will be sent to the patient by the facility within 30 days. Approximately 10% of breast cancers are not detected by mammography. A normal mammogram should not delay biopsy of a clinically suspicious abnormality. [id number] Electronically Signed: Angel Day MD at 12:30 EDT ,
== END | disposition home or self-care (01) ==
LOC: OPBI 10:50
PROVIDERS: PCP Internal Medicine; Referring Provider Internal Medicine; Visit Provider Internal Medicine
DX: Z12.31 Encounter for screening mammogram for malignant neoplasm of breast (principal)
CPT/HCPCS: 77063; 77067

== ENCOUNTER → 2022-06-15 | Outpatient (CLI) | payer OTHER, SELFPAY ==
[2022-06-15 15:23] LABS: Amphetamine Urine VISTA NEGATIVE (<1000 ng/mL); Barbiturate Urine VISTA NEGATIVE (< 200 ng/mL); Benzodiazepine Urine VISTA NEGATIVE (< 200 ng/mL); Cocaine Urine VISTA NEGATIVE (< 300 ng/mL); Ecstacy Urine VISTA NEGATIVE (< 500 ng/mL); Methadone Urine VISTA NEGATIVE (< 300 ng/mL); PCP Urine VISTA NEGATIVE (< 25 ng/mL); THC Urine VISTA NEGATIVE (< 50 ng/mL); Vista UDS pH Range 6
== END | disposition home or self-care (01) ==
LOC: LABSPEC 14:02
PROVIDERS: PCP Internal Medicine; Referring Provider Nurse Practitioner Family; Visit Provider Nurse Practitioner Family
DX: M75.31 Calcific tendinitis of right shoulder (principal); M75.32 Calcific tendinitis of left shoulder
CPT/HCPCS: 80307

== ENCOUNTER → 2022-06-27 | Outpatient (CLI) | payer OTHER, SELFPAY ==
[2022-06-27 13:21] LABS: Anion Gap 7 (5-15); BUN 15 mg/dL (7-18); BUN/Creat Ratio 22.7 RATIO (10-20); Calcium,Total 9.7 mg/dL (8.5-10.1); Chloride 105 mmol/L (98-107); Creatinine, Serum 0.66 mg/dL (0.55-1.02); EST Glomerular Filtration Rate 99 mL/min (>60); Est Glom Filt Rate - Afr Amer 120 mL/min (>60); Glucose 161 mg/dL (74-106); Potassium 4.3 mmol/L (3.5-5.1); Sodium Level 140 mmol/L (136-145)
== END | disposition home or self-care (01) ==
LOC: BIMLAB 09:39
PROVIDERS: PCP Internal Medicine; Referring Provider Internal Medicine; Visit Provider Internal Medicine
DX: I10 Essential (primary) hypertension (principal)
CPT/HCPCS: 36415; 80048

== ENCOUNTER → 2022-11-05 | Outpatient (CLI) | payer OTHER, SELFPAY ==
[2022-11-05 16:51] LABS: Absolute Lymphocyte Count 2.42 X10^3/uL (0.83-4.51); Absolute Neutrophil Count 5.2 X10^3/uL (2.0-7.7); Basophil# 0.02 X10^3/uL; Basophil% 0.2 % (0-1); Eosinophil# 0.02 X10^3/uL; Eosinophils% 0.2 % (0-5); Hematocrit 45.8 % (37-47); Hemoglobin 15.4 g/dL (12.0-15.0); Lymphocyte # 2.42 X10^3/ul (0.83-4.51); Lymphocyte % 30.2 % (19-41); Mean Corp Hgb Conc 33.6 g/dL (32-36); Mean Corpuscular Volume 89.3 fL (81-99); Mean Platelet Vol. 10.1 fl (6.2-12.0); Monocyte# 0.37 X10^3/uL; Monocyte% 4.6 % (0-10); NRBC Flagged by Analyzer 0 % (0-5); Neutrophil # 5.18 X10^3/uL (2.7-7.7); Neutrophil % 64.7 % (47-70); Platelet Count 353 K/mm3 (150-450); RBC Distribution Width CV 12.4 % (11.6-14.6); RBC Distribution Width SD 40.7 fl (35.1-43.9); Red Blood Count 5.13 M/mm3 (4.2-5.4)
[2022-11-05 17:07] LABS: ALB/GLOB Ratio 0.9 RATIO (0.9-2.4); AST(SGOT) 11 U/L (15-37); Alanine Aminotransfer ALT/SGPT 19 U/L (13-56); Albumin, Serum 3.5 g/dL (3.2-5.0); Alkaline Phosphatase 82 U/L (45-117); Anion Gap 6 (5-15); BUN 11 mg/dL (7-18); BUN/Creat Ratio 11.6 RATIO (10-20); Calcium,Total 9.3 mg/dL (8.5-10.1); Chloride 102 mmol/L (98-107); Cholesterol 167 mg/dL (200); Creatinine, Serum 0.95 mg/dL (0.55-1.02); EST Glomerular Filtration Rate 66 mL/min (>60); Est Glom Filt Rate - Afr Amer 79 mL/min (>60); Globulin 4.1 g/dL (2.2-4.2); Glucose 331 mg/dL (74-106); High Density Lipoprotein 53 mg/dL; Potassium 4.1 mmol/L (3.5-5.1); Protein, Total 7.6 g/dL (6.4-8.2); Sodium Level 132 mmol/L (136-145); Triglycerides 196 mg/dL; Very Low Density Lipoprotein 39 mg/dL (5-40)
[2022-11-05 17:14] LABS: Microalbumin,Random Urine 7.8 mg/L (NO RANGE EST.); Microalbumin:Creatinine Ratio 8.5 mg/g CRE (<30 mg/g CRE)
== END | disposition home or self-care (01) ==
LOC: BIMLAB 15:28
PROVIDERS: PCP Internal Medicine; Referring Provider Internal Medicine; Visit Provider Internal Medicine
DX: I10 Essential (primary) hypertension (principal); E11.9 Type 2 diabetes mellitus without complications
CPT/HCPCS: 36415; 80053; 80061; 82043; 82570; 85025

== ENCOUNTER 2022-12-10 13:30 | Emergency (ER) | payer OTHER, SELFPAY ==
[2022-12-10 13:31] VITALS: BP 151/88; PULSE 93; RESP 18; TEMP 36.6; O2SAT 98; BMI 36.3
[2022-12-10 14:35] LABS: Absolute Neutrophil Count 5.1 X10^3/uL (2.0-7.7); Basophil# 0.01 X10^3/uL; Basophil% 0.1 % (0-1); Eosinophil# 0.01 X10^3/uL; Eosinophils% 0.1 % (0-5); Hematocrit 38.9 % (37-47); Hemoglobin 13.4 g/dL (12.0-15.0); Lymphocyte % 24.8 % (19-41); Mean Corp Hgb Conc 34.4 g/dL (32-36); Mean Corpuscular Hgb 29.8 pg (27.0-32.0); Mean Corpuscular Volume 86.6 fL (81-99); Mean Platelet Vol. 8.9 fl (6.2-12.0); Monocyte# 0.32 X10^3/uL; Monocyte% 4.4 % (0-10); NRBC Flagged by Analyzer 0 % (0-5); Neutrophil # 5.09 X10^3/uL (2.7-7.7); Neutrophil % 70.3 % (47-70); Platelet Count 291 K/mm3 (150-450); RBC Distribution Width CV 12.3 % (11.6-14.6); RBC Distribution Width SD 38.9 fl (35.1-43.9); Red Blood Count 4.49 M/mm3 (4.2-5.4); White Blood Count 7.3 K/mm3 (4.4-11.0)
[2022-12-10 14:42] LABS: Internal QC Validated? YES +Cl - CLEAR BKGD; Pregnancy, Serum, hCG Quali. NEGATIVE Negative
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
[2022-12-10 14:50] LABS: Alcohol, Blood (Medical)-Serum < 3.0 mg/dL
[2022-12-10 14:51] LABS: Anion Gap 5 (5-15); BUN 9 mg/dL (7-18); Chloride 107 mmol/L (98-107); Creatinine, Serum 0.69 mg/dL (0.55-1.02); EST Glomerular Filtration Rate 94 mL/min (>60); Est Glom Filt Rate - Afr Amer 114 mL/min (>60); Estimated Creatinine Clearance 91.69 ml/min; Glucose 195 mg/dL (74-106); Potassium 3.8 mmol/L (3.5-5.1); Sodium Level 139 mmol/L (136-145)
[2022-12-10 16:26] LABS: Amphetamine Urine VISTA NEGATIVE (<1000 ng/mL); Barbiturate Urine VISTA NEGATIVE (< 200 ng/mL); Benzodiazepine Urine VISTA NEGATIVE (< 200 ng/mL); Cocaine Urine VISTA NEGATIVE (< 300 ng/mL); Ecstacy Urine VISTA NEGATIVE (< 500 ng/mL); Methadone Urine VISTA NEGATIVE (< 300 ng/mL); PCP Urine VISTA NEGATIVE (< 25 ng/mL); THC Urine VISTA NEGATIVE (< 50 ng/mL); Vista UDS pH Range 6
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
--- NOTE | 2022-12-12 11:52 | CM.ED ---
Social Work SW received a call back from patient as SINAI GordonTammy Jake left yesterday for safety plan follow up. SW inquired about [facility] assessment and overall symptoms. Patient reports she went to her assessment appointment and is now on their waiting list to start services. Patient reports decrease in symptoms and feels safe at home with no current concerns. SW provided emotional support and encouraged patient to contact [facility] or return to [facility] ED if symptoms increase or worse. Patient reports understanding and has no other needs. Norma Dia MSW, MICHAEL
== END 2022-12-10 17:27 | disposition home or self-care (01) ==
PROVIDERS: Emergency Provider Student in an Organized Health Care Education/Training Program; PCP Internal Medicine; Visit Provider Student in an Organized Health Care Education/Training Program
DX: F32.A Depression, unspecified (principal); E11.9 Type 2 diabetes mellitus without complications; Z79.4 Long term (current) use of insulin; R45.851 Suicidal ideations; E78.00 Pure hypercholesterolemia, unspecified; Z79.899 Other long term (current) drug therapy; Z87.891 Personal history of nicotine dependence
CPT/HCPCS: 36415; 80048; 80307; 82077; 84703; 85025; 87811; 99284

== ENCOUNTER → 2023-02-22 | Outpatient (CLI) | payer OTHER, SELFPAY ==
--- NOTE | 2023-02-22 10:48 | BI_ITS ---
MAMMOGRAPHY - BILATERAL SCREENING REASON FOR EXAM: Female, 52 years old. Routine annual screening examination. PERTINENT HISTORY: Aunt with breast cancer. TECHNIQUE: Digital bilateral breast ministerio (3D mammographic acquisition) in the CC and MLO projections. 2-D mediolateral oblique (MLO) and craniocaudad (CC) views of both breasts were obtained. CAD: Full Field Digital Mammography with Computer Added Detection was performed. COMPARISON: Comparison is made with prior examination of February 16, 2022 and January 24, 2021. FINDINGS: Breast Composition: The breasts are almost entirely fatty. There are no dominant masses or suspicious calcifications. Stable small benign-appearing bilateral axillary lymph nodes. No other significant abnormalities are identified. There has been no significant change since the prior study. BI/SCRN MAMM (CAD)W/MINISTERIO BILAT IMPRESSION: Stable bilateral screening mammogram. Yearly follow-up mammogram recommended. (A) ASSESSMENT CATEGORY: BIRADS Category 2: Benign. A letter regarding these results will be sent to the patient by the facility within 30 days. Approximately 10% of breast cancers are not detected by mammography. A normal mammogram should not delay biopsy of a clinically suspicious abnormality. [id number] Electronically Signed: Angel Day MD at 12:09 EDT ,
== END | disposition home or self-care (01) ==
LOC: OPBI 10:47
PROVIDERS: PCP Internal Medicine; Referring Provider Internal Medicine; Visit Provider Internal Medicine
DX: Z12.31 Encounter for screening mammogram for malignant neoplasm of breast (principal)
CPT/HCPCS: 77063; 77067

== ENCOUNTER → 2023-07-15 | Outpatient (CLI) | payer OTHER, SELFPAY ==
--- NOTE | 2023-07-15 13:00 | RAD_ITS ---
STUDY: X-RAY - PELVIS AND LEFT HIP REASON FOR EXAM: Female, 53 years old. 3 month history of bilateral hip pain worse on the left side. TECHNIQUE: 2 views of the pelvis and hip. COMPARISON: None. FINDINGS: There is a non-specific bowel gas pattern. Normal visualized soft tissue structures. Normal bilateral iliac wings, sacroiliac joints and visualized sacrum. Normal bilateral superior and inferior pubic rami. Normal pubic symphysis. Normal bilateral ischial tuberosities. Normal visualized femoral head. Normal acetabulum. Normal hip joint. RAD/HIP, UNI W/ Pelvis 2-3 Views IMPRESSION: Normal x-ray examination of the pelvis and hip. Electronically Signed: Angel Day MD at 14:08 EDT ,
== END | disposition home or self-care (01) ==
PROVIDERS: PCP Internal Medicine; Referring Provider Physician Assistant; Visit Provider Physician Assistant
DX: M25.552 Pain in left hip (principal)
CPT/HCPCS: 73502

== ENCOUNTER → 2023-08-30 | Outpatient (CLI) | payer OTHER, SELFPAY ==
--- NOTE | 2023-08-30 12:58 | US_ITS ---
EXAM: US RIGHT UPPER EXTREMITY NON-VASCULAR, COMPLETE CLINICAL INDICATION: bump on right forearm TECHNIQUE: Real-time ultrasound scan of the right upper extremity with image documentation. COMPARISON: No relevant prior studies available. FINDINGS: SOFT TISSUES: Images are obtained in the soft tissues of the right forearm the region of palpable abnormality. There is normal soft tissue with no mass or fluid collection. No foreign body. US/Ext Non Vasc Limited/Soft Tiss IMPRESSION: No acute findings in the right upper extremity. Electronically Signed: Jm Ricci MD at 23:49 EDT ,
== END | disposition home or self-care (01) ==
LOC: US 12:55
PROVIDERS: PCP Internal Medicine; Referring Provider Physician Assistant; Visit Provider Physician Assistant
DX: R22.31 Localized swelling, mass and lump, right upper limb (principal)
CPT/HCPCS: 76882

== ENCOUNTER → 2023-10-10 | Outpatient (CLI) | payer OTHER, SELFPAY ==
[2023-10-10 17:06] LABS: Absolute Lymphocyte Count 2.16 X10^3/uL (0.83-4.51); Basophil# 0.03 X10^3/uL; Basophil% 0.3 % (0-1); Eosinophil# 0.07 X10^3/uL; Eosinophils% 0.8 % (0-5); Hematocrit 43.3 % (37-47); Hemoglobin 14.3 g/dL (12.0-15.0); Lymphocyte # 2.16 X10^3/ul (0.83-4.51); Mean Corpuscular Hgb 28.3 pg (27.0-32.0); Mean Corpuscular Volume 85.7 fL (81-99); Mean Platelet Vol. 9.7 fl (6.2-12.0); Monocyte# 0.35 X10^3/uL; Monocyte% 4.1 % (0-10); NRBC Flagged by Analyzer 0 % (0-5); Neutrophil % 69.6 % (47-70); Platelet Count 364 K/mm3 (150-450); RBC Distribution Width CV 13.2 % (11.6-14.6); RBC Distribution Width SD 40.8 fl (35.1-43.9); Red Blood Count 5.05 M/mm3 (4.2-5.4); White Blood Count 8.6 K/mm3 (4.4-11.0)
[2023-10-10 17:22] LABS: ALB/GLOB Ratio 0.8 RATIO (0.9-2.4); AST(SGOT) 10 U/L (15-37); Alanine Aminotransfer ALT/SGPT 17 U/L (13-56); Albumin, Serum 3.3 g/dL (3.2-5.0); Alkaline Phosphatase 87 U/L (45-117); Anion Gap 6 (5-15); BUN 16 mg/dL (7-18); BUN/Creat Ratio 18.6 RATIO (10-20); Calcium,Total 9.3 mg/dL (8.5-10.1); Chloride 106 mmol/L (98-107); Cholesterol 144 mg/dL (200); Creatinine, Serum 0.86 mg/dL (0.55-1.02); EST Glomerular Filtration Rate 73 mL/min (>60); Est Glom Filt Rate - Afr Amer 89 mL/min (>60); Globulin 3.9 g/dL (2.2-4.2); Glucose 227 mg/dL (74-106); High Density Lipoprotein 53 mg/dL; Potassium 3.8 mmol/L (3.5-5.1); Protein, Total 7.2 g/dL (6.4-8.2); Sodium Level 137 mmol/L (136-145); Triglycerides 200 mg/dL; Very Low Density Lipoprotein 40 mg/dL (5-40)
== END | disposition home or self-care (01) ==
LOC: BIMLAB 16:01
PROVIDERS: PCP Internal Medicine; Referring Provider Internal Medicine; Visit Provider Internal Medicine
DX: E11.65 Type 2 diabetes mellitus with hyperglycemia (principal); Z79.4 Long term (current) use of insulin; I10 Essential (primary) hypertension
CPT/HCPCS: 36415; 80053; 80061; 85025

== ENCOUNTER → 2023-11-27 | Outpatient (CLI) | payer OTHER, SELFPAY ==
--- NOTE | 2023-11-27 16:11 | MRI_ITS ---
EXAM: MR RIGHT UPPER EXTREMITY WITHOUT INTRAVENOUS CONTRAST, FOREARM CLINICAL INDICATION: soft tissue mass over forearm, area marked with beads. TECHNIQUE: Multiplanar and multisequence MR images of the right forearm without intravenous contrast. COMPARISON: No relevant prior studies available. FINDINGS: BONES/JOINTS: Unremarkable. No fracture. No abnormal bone marrow signal. No joint effusion. MUSCLES: Unremarkable. No edema or myositis. OTHER SOFT TISSUES: Unremarkable. No solid or cystic mass. MRI/Upper Ext/No Jt/ wo IMPRESSION: No soft tissue mass to explain the clinical presentation. No other significant internal derangement. Electronically Signed: Baldo Boyer MD at 21:27 EDT ,
== END | disposition home or self-care (01) ==
PROVIDERS: PCP Internal Medicine; Referring Provider Orthopaedic Surgery; Visit Provider Orthopaedic Surgery
DX: R22.31 Localized swelling, mass and lump, right upper limb (principal); M79.631 Pain in right forearm
CPT/HCPCS: 73218

== ENCOUNTER → 2024-03-27 | Outpatient (CLI) | payer OTHER, SELFPAY ==
--- NOTE | 2024-03-27 15:36 | BI_ITS ---
MAMMOGRAPHY - BILATERAL SCREENING 3-D TOMOSYNTHESIS REASON FOR EXAM: Female, 53 years old. screening for breast cancer PERTINENT HISTORY: No significant family history. TECHNIQUE: 2-D mammograms and 3-D Tomosynthesis of the breast (s) were performed. CAD was performed. COMPARISON: 02/22/2023 FINDINGS: The breast composition is composed of scattered fibroglandular density. Scattered benign calcifications are seen. No dense spiculated masses or suspicious microcalcifications are identified. No architectural distortion is identified. There is no skin thickening or retraction. There has been no significant change since the prior study. BI/SCRN MAMM (CAD)W/MINISTERIO BILAT IMPRESSION: No mammographic signs of malignancy. Routine yearly mammograms recommended. ASSESSMENT CATEGORY: BIRADS Category 1: Negative. A letter regarding these results will be sent to the patient by the facility within 30 days. FOLLOW UP RECOMMENDATION: Yearly follow up mammogram recommended. (A) Approximately 10% of breast cancers are not detected by mammography. A normal mammogram should not delay biopsy of a clinically suspicious abnormality. Electronically Signed: Ash Doty MD at 9:03 EST ,
== END | disposition home or self-care (01) ==
PROVIDERS: PCP Internal Medicine; Referring Provider Obstetrics & Gynecology; Visit Provider Obstetrics & Gynecology
DX: Z12.31 Encounter for screening mammogram for malignant neoplasm of breast (principal)
CPT/HCPCS: 77063; 77067

== ENCOUNTER → 2024-06-05 | Outpatient (CLI) | payer OTHER, SELFPAY ==
[2024-06-05 12:49] LABS: ALB/GLOB Ratio 0.9 RATIO (0.9-2.4); AST(SGOT) 10 U/L (15-37); Alanine Aminotransfer ALT/SGPT 14 U/L (13-56); Albumin, Serum 3.1 g/dL (3.2-5.0); Alkaline Phosphatase 81 U/L (45-117); Anion Gap 5 (5-15); BUN 21 mg/dL (7-18); BUN/Creat Ratio 26.2 RATIO (10-20); Chloride 105 mmol/L (98-107); EST Glomerular Filtration Rate 79 mL/min (>60); Est Glom Filt Rate - Afr Amer 96 mL/min (>60); Globulin 3.6 g/dL (2.2-4.2); Glucose 213 mg/dL (74-106); Protein, Total 6.7 g/dL (6.4-8.2); Sodium Level 137 mmol/L (136-145)
[2024-06-05 12:52] LABS: Absolute Lymphocyte Count 2.09 X10^3/uL (0.83-4.51); Absolute Neutrophil Count 6.7 X10^3/uL (2.0-7.7); Basophil# 0.04 X10^3/uL; Basophil% 0.4 % (0-1); Eosinophil# 0.19 X10^3/uL; Hematocrit 40.8 % (37-47); Hemoglobin 13.7 g/dL (12.0-15.0); Lymphocyte # 2.09 X10^3/ul (0.83-4.51); Lymphocyte % 22.1 % (19-41); Mean Corp Hgb Conc 33.6 g/dL (32-36); Mean Corpuscular Hgb 29.5 pg (27.0-32.0); Mean Corpuscular Volume 87.9 fL (81-99); Mean Platelet Vol. 9.5 fl (6.2-12.0); Monocyte# 0.44 X10^3/uL; Monocyte% 4.6 % (0-10); NRBC Flagged by Analyzer 0 % (0-5); Neutrophil # 6.69 X10^3/uL (2.7-7.7); Neutrophil % 70.7 % (47-70); Platelet Count 317 K/mm3 (150-450); RBC Distribution Width CV 13.1 % (11.6-14.6); RBC Distribution Width SD 41.9 fl (35.1-43.9); Red Blood Count 4.64 M/mm3 (4.2-5.4); White Blood Count 9.5 K/mm3 (4.4-11.0)
== END | disposition home or self-care (01) ==
LOC: BIMLAB 08:47
PROVIDERS: PCP Internal Medicine; Referring Provider Internal Medicine; Visit Provider Internal Medicine
DX: E11.65 Type 2 diabetes mellitus with hyperglycemia (principal); Z79.4 Long term (current) use of insulin; I10 Essential (primary) hypertension
CPT/HCPCS: 36415; 80053; 85025

== ENCOUNTER → 2024-09-11 | Outpatient (CLI) | payer OTHER, SELFPAY ==
[2024-09-11 14:05] LABS: Anion Gap 10 (5-15); BUN 21 mg/dL (4-19); BUN/Creat Ratio 26.9 RATIO (10-20); Calcium,Total 9.2 mg/dL (7.6-11.0); Carbon Dioxide 23.6 mmol/L (21.0-32.0); Chloride 105 mmol/L (98-108); Cholesterol 137 mg/dL (<=200); Creatinine, Serum 0.79 mg/dL (0.70-1.20); EST Glomerular Filtration Rate 89 (>60); Glucose 189 mg/dL (70-99); High Density Lipoprotein 54 mg/dL; Low Density Lipoprotein Calc. 65 mg/dL; Potassium 4.6 mmol/L (3.3-5.1); Sodium Level 138 mmol/L (133-145); Triglycerides 87 mg/dL; Very Low Density Lipoprotein 17 mg/dL (5-40); cholesterol:hdl ratio screen 2.52
== END | disposition home or self-care (01) ==
LOC: BIMLAB 11:19
PROVIDERS: PCP Internal Medicine; Referring Provider Internal Medicine; Visit Provider Internal Medicine
DX: Z01.84 Encounter for antibody response examination (principal); I10 Essential (primary) hypertension; E78.2 Mixed hyperlipidemia
CPT/HCPCS: 36415; 80048; 80061; 86765

== ENCOUNTER → 2025-02-17 | Outpatient (CLI) | payer OTHER, SELFPAY ==
[2025-02-17 12:34] LABS: CRP 10.60 mg/L (0.0-3.0); Uric Acid 5.2 mg/dL (2.6-6.0)
[2025-02-18 15:07] LABS: ANTINUCLEAR ANTIBODIES DIRECT Negative (Negative)
== END | disposition home or self-care (01) ==
LOC: LAB 11:15
PROVIDERS: PCP Internal Medicine; Referring Provider Nurse Practitioner Family; Visit Provider Nurse Practitioner Family
DX: Z01.84 Encounter for antibody response examination (principal); M54.50 Low back pain, unspecified; M25.552 Pain in left hip
CPT/HCPCS: 36415; 72100; 73502; 84550; 85652; 86038; 86140; 86225; 86431

== ENCOUNTER 2025-02-24 09:50 | Outpatient (RCR) | payer OTHER, SELFPAY | END 2025-03-05 23:59 | LOC: NS 09:50 | PROVIDERS: PCP Internal Medicine; Referring Provider Internal Medicine; Visit Provider Internal Medicine | DX: E66.09 Other obesity due to excess calories (principal); Z68.34 Body mass index [BMI] 34.0-34.9, adult; E11.65 Type 2 diabetes mellitus with hyperglycemia; Z79.4 Long term (current) use of insulin; E78.1 Pure hyperglyceridemia | CPT/HCPCS: 97802 ==

== ENCOUNTER → 2025-03-31 | Outpatient (CLI) | payer OTHER, SELFPAY ==
--- NOTE | 2025-03-31 12:15 | BI_ITS ---
EXAM: SCRN MAMM (CAD)W/MINISTERIO BILAT DATE: 03/31/2025 CLINICAL HISTORY: F, Age 54 y/o , BREAST CANCER SCREENING TECHNIQUE: Procedure Code: [id number] Modality: MG Procedure: SCRN MAMM (CAD)W/MINISTERIO BILAT COMPARISON: Prior exam(s) dated 03/27/2024, 02/22/2023, and 02/16/2022.. FINDINGS: TISSUE DENSITY: The breasts are almost entirely fatty. Bilateral Breast Mammographic Findings: Benign-appearing round calcifications are seen in both breasts. There are 2 benign-appearing, well-circumscribed, stable, isodense masses seen in the superior outer, middle 3rd aspect of the left breast. On the ministerio images these masses appear to have a fatty hilum and are most compatible with intramammary lymph nodes. There are no suspicious masses, suspicious cluster of microcalcifications, architectural distortion or secondary signs of malignancy identified in either breast. BI/SCRN MAMM (CAD)W/MINISTERIO BILAT IMPRESSION: Benign screening mammogram. OVERALL FINAL ASSESSMENT BI-RADS 2: BENIGN RECOMMENDATION: Routine annual follow-up in 1 Year Additional Recommendation none A letter with findings and recommendations will be mailed to the patient. Reading Location: [id number]
== END | disposition home or self-care (01) ==
LOC: OPBI 11:56
PROVIDERS: PCP Internal Medicine; Referring Provider Internal Medicine; Visit Provider Internal Medicine
DX: Z12.31 Encounter for screening mammogram for malignant neoplasm of breast (principal)
CPT/HCPCS: 77063; 77067